=== PATIENT | male | born 1970 | race Caucasian/White ===

== ENCOUNTER → 2020-11-12 | Outpatient (CLI) | payer BC ==
--- NOTE | 2020-11-12 15:02 | XR ---
EXAMINATION TYPE: XR ankle limited RT DATE OF EXAM: 11/12/2020 COMPARISON: NONE HISTORY: 50-year-old male R52, pain TECHNIQUE: 2 views FINDINGS: Ankle mortise is congruent. No acute fracture, subluxation, or dislocation. Talar dome appears intact . There is lateral plate and screw fixation across the calcaneus. Some mild patchy osteopenia is pres ent along the hindfoot. Small delineation of the Achilles tendon. IMPRESSION: Prior lateral plate and screw fixation of the calcaneus. No acute osseous abnormality seen on these 2 views.
== END | disposition home or self-care (01) ==
LOC: RADXRMAIN 13:20
PROVIDERS: ATTEND Internal Medicine
DX: G89.29 Other chronic pain (principal)

== ENCOUNTER 2021-06-19 13:19 | Observation (INO) | payer BC ==
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
[2021-06-19 14:28] LABS: Basophils % (A) 0 %; Eosinophils % (A) 0 %; HCT 45.3 % (39.0-53.0); Hyperchromasia Slight; Lymphocytes # (A) 2.2 k/uL (1.0-4.8); Lymphocytes % (A) 24 %; MCH 31.7 pg (25.0-35.0); MCHC 35.4 g/dL (31.0-37.0); MCV 89.6 fL (80.0-100.0); Mean Platelet Volume 7.4; Monocytes # (A) 0.2 k/uL (0-1.0); Monocytes % (A) 3 %; Neutrophils # (A) 6.2 k/uL (1.3-7.7); Neutrophils % (A) 70 %; Platelet Count 381 k/uL (150-450); RBC 5.05 m/uL (4.30-5.90); RDW 13.5 % (11.5-15.5); WBC 8.8 k/uL (3.8-10.6)
[2021-06-19 14:38] LABS: ALT 42 U/L (4-49); AST 43 U/L (17-59); African American GFR (CKD) >90 (>60 ml/min/1.73 sqM); Albumin 4.5 g/dL (3.5-5.0); Alkaline Phosphatase 135 U/L (38-126); Anion Gap 11 mmol/L; Blood Urea Nitrogen 24 mg/dL (9-20); Calcium 9.8 mg/dL (8.4-10.2); Carbon Dioxide 20 mmol/L (22-30); Chloride 107 mmol/L (98-107); Creatine Kinase 43 U/L (55-170); Glucose 120 mg/dL (74-99); Magnesium 2.2 mg/dL (1.6-2.3); Non-African American GFR(CKD) >90 (>60 ml/min/1.73 sqM); Sodium 138 mmol/L (137-145); Total Bilirubin 0.8 mg/dL (0.2-1.3); Total Protein 7.9 g/dL (6.3-8.2)
[2021-06-19 14:40] LABS: INR 1.1 (<1.2); Partial Thromboplastin Time 23.7 sec (22.0-30.0); Prothrombin Time 11.8 sec (9.0-12.0)
[2021-06-19 14:41] LABS: Potassium 4.7 mmol/L (3.5-5.1)
[2021-06-19] MEDS ORDERED: ACETAMINOPHEN TAB 325 MG TAB PO PRN (15:44)
[2021-06-19] MEDS ORDERED: NALOXONE 0.4 MG/ML 1 ML VIAL IV PRN (15:44)
[2021-06-19] MEDS ORDERED: NICOTINE 21MG/24HR PATCH TRANSDERM STA (15:46)
[2021-06-19] MEDS ORDERED: ALBUTEROL HFA INHALER INHALATION PRN (15:47)
[2021-06-19] MEDS ORDERED: CYCLOBENZAPRINE 5 MG TAB PO PRN (15:47)
[2021-06-19] MEDS ORDERED: HYDROmorphone 0.5 MG/0.5 ML SYRINGE IVP PRN (18:33)
--- NOTE | 2021-06-19 19:37 | HP ---
HISTORY AND PHYSICAL CHIEF COMPLAINT: Right-sided chest discomfort and pneumothorax. HISTORY OF PRESENT ILLNESS: This 50-year-old gentleman with a past medical history of hypertension, history of migraines and history of tonsillectomy, being followed by Dr. Cervantes in the outpatient setting, apparently had sexual intercourse 2 days ago, and subsequently the patient lay down. The patient had right-sided chest pain, some shortness of breath, some discomfort. The patient was evaluated and had 20% to 30% pneumothorax. Because of lack of improvement and continued discomfort, the patient was sent to [facility] and was admitted for further evaluation and treatment. There is no history of any fever, rigors or chills. No history of headache, loss of consciousness, seizures. PAST MEDICAL: Hypertension, history of musculoskeletal disorder, history of migraines. MEDICATIONS: Prior to admission include Medrol Dosepak, [place], Flexeril, Zithromax, Ventolin p.r.n. ALLERGIES: PENICILLIN. FAMILY HISTORY: No history of heart disease or strokes in the family. SOCIAL HISTORY: History of smoking. History of THC. REVIEW OF SYSTEMS: ENT: No diminished hearing. No diminished vision. CARDIOVASCULAR SYSTEM: No angina, palpitations. RESPIRATORY SYSTEM: As mentioned earlier. GI: No nausea, vomiting, diarrhea. : No dysuria. NERVOUS SYSTEM: No numbness, weakness. ALLERGY/IMMUNOLOGY: No asthma or hay fever. MUSCULOSKELETAL: As mentioned earlier. HEMATOLOGY/ONCOLOGY: No history of anemia. ENDOCRINE: No history of diabetes, hypothyroidism. CONSTITUTIONAL: As mentioned earlier. DERMATOLOGY: Negative. RHEUMATOLOGY: Negative. PSYCHIATRY: As mentioned earlier. PHYSICAL EXAMINATION: Patient is alert, oriented x3. Pulse is 104, blood pressure 173/104, respiration 20, temperature 98.4, pulse ox 94% on room air. HEENT: Conjunctivae normal. Oral mucosa moist. NECK: No jugular venous distention. No carotid bruit. No lymph node enlargement. Trachea has mildly shifted to the left. CARDIOVASCULAR: S1, S2 muffled. No S3. No S4. RESPIRATION: Breath sounds diminished in the left side. No rhonchi. No crackles. ABDOMEN: Soft, nontender. No mass palpable. LEGS: No edema. No swelling. NERVOUS SYSTEM: Higher functions as mentioned earlier. Moves all 4 limbs. No focal motor or sensory deficit. LYMPHATICS: No lymph node palpable in neck, axillae or groin. SKIN: No ulcer, rash, bleeding. JOINTS: No active deforming arthropathy. LABS: CBC within normal limits. Sodium 138, potassium 4.7. Other labs are noted. Glucose 120. ASSESSMENT: 1. Spontaneous right pneumothorax with failure of outpatient treatment. 2. Decreased carbon dioxide. 3. Elevated alkaline phosphatase. 4. Hypertension. 5. History of migraine. 6. History of tonsillectomy. 7. History of ORIF for the bilateral feet. 8. History of panic attack. 9. History nicotine dependence. 10.History of THC. 11.FULL CODE. RECOMMENDATIONS AND DISCUSSION: In this 50-year-old gentleman who presented with multiple complex medical issues, we will monitor the patient closely, continue the current medications, continue symptomatic treatment. Repeat x-rays. Resume the home medications. Consult Dr. Ortiz for possible valve. Otherwise, prognosis guarded. Discussed with the patient, under understands. Further recommendations to follow. A copy of this dictation is being forwarded to Dr. Cervantes, who is the primary physician. PRADEEP / ADELAIDAN: [id number] / GLENDY
[2021-06-19] MEDS: HYDROcodone/APAP 10-325MG 1 EACH TAB PO PRN (22:42)
[2021-06-19] MEDS: HEPARIN SODIUM,PORCINE/PF 5,000 UNIT/0.5 ML SYRINGE SQ SCH (22:42)
--- NOTE | 2021-06-19 22:51 | CT ---
EXAMINATION TYPE: CT chest wo con DATE OF EXAM: 06/19/2021 COMPARISON: None HISTORY: right pnemo CT DLP: 263.4 mGycm Automated exposure control for dose reduction was used. Exam from the thoracic inlet to the diaphragm with no contrast. There is bullous pulmonary emphysema. There is also a right-sided pneumothorax and best seen along th e lower lateral right chest wall measuring up to 2.4 cm in thickness. This is approximate 25% pneumot horax. Heart size is normal. There is some reticular density at the right lung apex consistent with s carring. There are no hilar masses. There is no mediastinal adenopathy. There is no pleural effusion. . Bony thorax is intact. Thoracic spine is intact. Sternum is intact. IMPRESSION: There is approximate 25% right-sided pneumothorax probably not changed compared to chest x-ray 9 hour s ago. Severe bullous pulmonary emphysema. Right upper lobe scarring. No suspicious pulmonary mass.
--- NOTE | 2021-06-20 08:56 | XR ---
EXAMINATION TYPE: XR chest 2V DATE OF EXAM: 06/20/2021 COMPARISON: 06/19/2021 HISTORY: 50 years Male. STUDY INDICATION GIVEN: Pneumothorax . TECHNIQUE: Frontal lateral chest radiographs IMPRESSION: Stable small right sided moderate pneumothorax. No pneumothorax seen on the left. Hyperinflated lungs suggest centrilobular emphysema/COPD. Mild increase in interstitial opacities bilaterally suggests element of interstitial lung disease. No pleural effusion. Normal cardiomediastinal silhouette. Osseous structures appear similar to prior study.
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
[2021-06-20] MEDS: HEPARIN SODIUM,PORCINE/PF 5,000 UNIT/0.5 ML SYRINGE SQ SCH ×2 (10:20→21:29)
[2021-06-20] MEDS ORDERED: MULTIVITAMINS, THERA 1 EACH TAB PO SCH (12:00)
[2021-06-20 12:01] LABS: Basophils # (A) 0.1 k/uL (0-0.2); Basophils % (A) 1 %; Eosinophils # (A) 0.1 k/uL (0-0.7); Eosinophils % (A) 1 %; HCT 44.7 % (39.0-53.0); HGB 15.7 gm/dL (13.0-17.5); Hyperchromasia Slight; Lymphocytes # (A) 3.5 k/uL (1.0-4.8); Lymphocytes % (A) 41 %; MCH 31.9 pg (25.0-35.0); MCHC 35.2 g/dL (31.0-37.0); MCV 90.7 fL (80.0-100.0); Mean Platelet Volume 6.9; Monocytes # (A) 0.5 k/uL (0-1.0); Monocytes % (A) 6 %; Neutrophils % (A) 47 %; Platelet Count 358 k/uL (150-450); RBC 4.93 m/uL (4.30-5.90); RDW 13.5 % (11.5-15.5); WBC 8.6 k/uL (3.8-10.6)
[2021-06-20 12:23] LABS: African American GFR (CKD) >90 (>60 ml/min/1.73 sqM); Anion Gap 10 mmol/L; Blood Urea Nitrogen 24 mg/dL (9-20); Calcium 9.7 mg/dL (8.4-10.2); Carbon Dioxide 25 mmol/L (22-30); Chloride 103 mmol/L (98-107); Glucose 122 mg/dL (74-99); Non-African American GFR(CKD) 83 (>60 ml/min/1.73 sqM); Potassium 4.5 mmol/L (3.5-5.1); Sodium 138 mmol/L (137-145)
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
[2021-06-20] MEDS ORDERED: NICOTINE 21MG/24HR PATCH TRANSDERM STA (17:08)
--- NOTE | 2021-06-20 19:07 | PN ---
PROGRESS NOTE DATE OF SERVICE: 06/20/2021 This 50-year-old gentleman who was admitted with right-sided pneumothorax had bullae, bullous emphysematous disease. Dr. Ortiz is recommending conservative line of treatment at this time. The pneumothorax seems to be improving at this time. The bullae are mostly situated in the upper lobe. No chest pain. No palpitations. No fever. PHYSICAL EXAMINATION: Alert and oriented x3. Pulse 71, blood pressure 129/84, respiration 18, temperature 97.9, pulse ox 97% on room air. HEENT: Conjunctivae normal. NECK: No jugular venous distention. CARDIOVASCULAR: S1, S2 muffled. RESPIRATION: Breath sounds diminished at the bases. A few scattered rhonchi. ABDOMEN: Soft. NERVOUS SYSTEM: No focal deficit. LABS: Glucose 122. ASSESSMENT: 1. Acute spontaneous right pneumothorax with failure of outpatient treatment, possibly from rupture of bullae. 2. Possible chronic obstructive pulmonary disease and emphysema with multiple bullous lesions in the lungs bilaterally. 3. Decreased carbon dioxide. 4. Elevated alkaline phosphatase. 5. Hypertension. 6. History of migraines. 7. History of tonsillectomy. 8. History of ORIF of bilateral feet. 9. History of nicotine dependence. 10.History of panic attacks. 11.History of THC. 12.FULL CODE. RECOMMENDATIONS AND DISCUSSION: I recommend to continue current medications, continue with symptomatic treatment. Continue with bronchodilators. Continue with the rest of the medications. Repeat x- rays. Follow with Dr. Ortiz. Prognosis guarded. Further recommendations to follow. MMODL / IJN: [id number] /
[2021-06-20] MEDS: ALBUTEROL HFA INHALER INHALATION SCH (21:25)
[2021-06-20] MEDS: HYDROcodone/APAP 10-325MG 1 EACH TAB PO PRN (22:24)
[2021-06-21 04:07] VITALS: RESP 17
[2021-06-21 08:02] VITALS: BP 151/94; PULSE 88; TEMP 98
--- NOTE | 2021-06-21 08:44 | XR ---
EXAMINATION TYPE: XR chest 2V DATE OF EXAM: 06/21/2021 COMPARISON: 06/20/2021 HISTORY: 50-year-old male pneumothorax TECHNIQUE: PA and lateral views FINDINGS: Heart normal size. Aortopulmonary vasculature within normal limits. Hyperinflation. Right-sided pneum othorax redemonstrated. The peripheral right upper lobe component measures 1.7 cm versus 1.9 cm, prev iously. The peripheral right basilar component measures 1.8 cm versus 2.3 cm, previously. No consolid ation or pleural effusion. IMPRESSION: COPD with continued small right-sided pneumothorax. Both the peripheral right upper lobe and peripher al right basilar components show slight decreasing size with measurements as above.
[2021-06-21] MEDS: ALBUTEROL HFA INHALER INHALATION SCH ×2 (09:01→12:29)
[2021-06-21] MEDS: HEPARIN SODIUM,PORCINE/PF 5,000 UNIT/0.5 ML SYRINGE SQ SCH (09:30)
--- NOTE | 2021-06-21 11:16 | P.PN ---
Subjective Progress Note Date: 06/21/21 Principal diagnosis: Spontaneous right pneumothorax. Past medical history significant for migraine headaches, daily marijuana use, chronic ongoing tobacco dependence and family hi story of early onset coronary artery disease with his father having a myocardial infarction in his early 50s. The patient is seen in follow-up today 06/21/2021 and his bedside on the fourth floor medical surgical unit. Currently the patient is up ambulating in his room, is awake, alert and oriented 3 and is in no acute apparent distress. Denies any complaints of shortness of breath or pain at this time. Oxygen saturations are 97% on room air and he is achieving 1750 mL on his incentive spirometry with encouragement. A follow-up x-ray was completed this morning which demonstrates COPD with continued small right-sided pneumothorax with the radiology report showing a decreasing in size of the right sided pneumothorax. The patient reports he is anxious to be discharged home. Objective - Vital Signs Vital signs: Vital Signs Temp 98 F 06/21/21 08:00 Pulse 88 06/21/21 08:00 Resp 17 06/21/21 08:00 BP 151/94 06/21/21 08:00 Pulse Ox 97 06/21/21 08:00 Intake & Output 06/20/21 06/21/21 06/21/21 18:59 06:59 18:59 Other: # Voids 3 3 - Exam CONSTITUTIONAL: Up ambulating in his room on the medical surgical unit, appears comfortable, cooperative, no apparent acute distress. HEENT: Neck is supple, no JVD, no lymphadenopathy. RESPIRATORY: Lungs sounds essentially clear throughout, diminished to his right lower lobe. Respirations are symmetrical and nonlabored. Currently on room air with oxygen saturations 97%. Able to achieve 1750 mL on their incentive spirometry. Strong cough. CARDIOVASCULAR: Regular rhythm and rate. S1 and S2 present, negative for S3, gallop or murmur. No edema present. Peripheral pulses palpable. GASTROINTESTINAL: Abdomen soft, nontender, nondistended. Active bowel sounds present 4 quadrants. Tolerating diet. No guarding or rigidity. GENITOURINARY: Continues to void. INTEGUMENTARY: Skin is warm and dry with no evidence of clubbing or cyanosis. NEUROLOGIC: Cranial nerves II through XII intact. No focal deficits. MUSKULOSKELETAL: Able to move all extremities, strength equal bilaterally. PSYCHIATRIC: Alert and oriented to person place and time, appropriate affect, intact judgment and insight. - Allied health notes Allied health notes reviewed: nursing - Labs CBC & Chem 7: 06/20/21 11:34 06/20/21 11:34 Labs: Abnormal Lab Results - Last 24 Hours (Table) 06/20/21 Range/Units 11:34 BUN 24 H (9-20) mg/dL Glucose 122 H (74-99) mg/dL - Imaging and Cardiology Chest x-ray: report reviewed, image reviewed Assessment and Plan Assessment: 1. Acute spontaneous right sided pneumothorax 2. History of migraine headaches 3. Chronic ongoing tobacco dependence 4. Daily marijuana use 5. History of early onset coronary artery disease with his father having a my ocardial infarction in his early 50s Plan: 1. The patient remains asymptomatic, recommendations for discharge home per the cardiothoracic surgery standpoint and follow-up with on an outpatient basis. 2. Encourage use of his incentive spirometry 10 times every hour while awake. 3. The importance of risk modification including smoking cessation discussed with the patient. 4. More recommendations to follow based on patient's clinical course. Time with Patient: Greater than 30
--- NOTE | 2021-06-21 12:49 | P.PN ---
Subjective Progress Note Date: 06/21/21 Principal diagnosis: Right-sided chest pain, pneumothorax This is a 50-year-old white male primarily a patient of Dr. Cervantes, known history of COPD, [id number] smoking history, patient is also known to have history of migraine cephalgia, never seen by motor driver in the past. Patient developed sudden onset of right-sided chest pain on 06/17/2021 after having sexual intercourse. His pain was severe, and it was associated with some shortness of breath. Did not think much of it, patient took on his own and Medrol Dosepak, and that seemed to relieve the pain. Saw his primary care physician on 06/19 for a previously scheduled appointment, and because of his pain and he recommended that he goes to the ER. Patient was noted to have a small right-sided pneumothorax, seemed to be mostly loculated at the right base. CT of the chest showed significant emphysema with significant emphysematous blebs in both of his lungs. Patient had no symptoms during my evaluation. I reviewed the CT of the chest I also reviewed the x-ray, and felt at this point it is not really neces grant to place a chest tube, however if the pneumothorax gets any worse, may have to consider chest tube placement. I have also recommended evaluation by thoracic surgery, and my recommendations point is to observe, and follow-up on outpatient basis. Thoracic surgery consult was recommended. The patient is seen today 06/21/2021 in follow-up. He is currently sitting up in bed. Awake and alert in no acute distress. Denies any worsening shortness of breath, cough or congestion. Maintaining O2 saturations in the 90s on room air. She's afebrile. Hemodynamically stable. Follow-up chest x-ray continues to show evidence of COPD with a small right-sided pneumothorax. Both the peripheral right upper lobe and peripheral right basilar components show slight decrease in size. Objective - Vital Signs Vital signs: Vital Signs Temp 98 F 06/21/21 08:00 Pulse 88 06/21/21 08:00 Resp 17 06/21/21 08:00 BP 151/94 06/21/21 08:00 Pulse Ox 97 06/21/21 08:00 Intake & Output 06/20/21 06/21/21 06/21/21 18:59 06:59 18:59 Other: # Voids 3 3 - Exam GENERAL EXAM: Alert, wasn't 50-year-old gentleman, appears older than stated age, on room air, comfortable in no apparent distress. HEAD: Normocephalic. EYES: Normal reaction of pupils, equal size. NOSE: Clear with pink turbinates. THROAT: No erythema or exudates. NECK: No masses, no JVD. CHEST: No chest wall deformity. LUNGS: Equal air entry with no crackles, wheeze, rhonchi or dullness. Diminished CVS: S1 and S2 normal with no audible murmur, regular rhythm. ABDOMEN: No hepatosplenomegaly, normal bowel sounds, no guarding or rigidity. SPINE: No scoliosis or deformity SKIN: No rashes CENTRAL NERVOUS SYSTEM: No focal deficits, tone is normal in all 4 extremities. EXTREMITIES: There is no peripheral edema. No clubbing, no cyanosis. Peripheral pulses are intact. - Labs CBC & Chem 7: 06/20/21 11:34 06/20/21 11:34 Assessment and Plan Assessment: 1 Acute right sided spontaneous pneumothorax 2 Suspect severe underlying emphysema 3 Tobacco dependence syndrome 4 History of migraine cephalgia 5 Family history of coronary artery disease. Plan: The patient was seen and evaluated by Dr. Ortiz Chest x-ray reviewed Cleared for discharge from the pulmonary standpoint Educated regarding the importance of complete smoking cessation Follow-up in our office in 1 week I, the cosigning physician, performed a history & physical examination of the patient. Lungs sounds are clear, diminished. Maintaining O2 saturations in the 90s on room air. I discussed the assessment and plan of care with my nurse practitioner, Chata Mosquera. I attest to the above note as dictated by her.
--- NOTE | 2021-06-22 05:42 | DS ---
DISCHARGE SUMMARY DATE OF SERVICE: 06/21/2021 FINAL DIAGNOSES: 1. Acute spontaneous right pneumothorax with failure of outpatient treatment, possibly from rupture of the bullae. 2. Possible chronic obstructive pulmonary disease with bullous emphysema with multiple bullous lesions bilaterally in the lungs. 3. Decreased CO2. 4. Elevated alkaline phosphatase. 5. Hypertension. 6. History of migraines. 7. History of tonsillectomy. 8. History of ORIF of the bilateral feet. 9. History of nicotine dependence. 10.History of panic attacks. 11.History of THC. 12.FULL CODE. DISCHARGE DISPOSITION: Patient being discharged in stable condition with guarded prognosis. HISTORY OF PRESENT ILLNESS: This 50-year-old gentleman with a past medical history of multiple medical problems, being followed by Dr. Cervantes in the outpatient setting admitted with right spontaneous pneumothorax. CT scan showed multiple bullae. The patient was treated conservatively. Initially the pneumothorax was 20-30 percent, but subsequently improved and only confined to the lower part. Cardiothoracic surgery and Dr. Ortiz saw the patient recommended outpatient followup. On exam, vitals stable. Cardiovascular S1, S2. Respiratory with a few rhonchi. Abdomen soft. Nervous system: No focal deficits. DISCHARGE ADVICE AND MEDICATIONS: 1. Diet is cardiac diet. 2. Activity limited until follow up. 3. Follow up with Dr. Ortiz in 1 week. 4. Follow up with Dr. Cervantes as recommended. 5. Flexeril 5 mg p.o. daily. 6. Medrol Dosepak taper. 7. Hydrocodone 10 mg p.r.n. 8. Ventolin HFA 2 puffs q.i.d. 9. Zithromax 500 mg as before. 10.Follow up with Dr. Almonte in 1 week. MMODL / IJN: [id number] /
== END 2021-06-21 12:44 | disposition home or self-care (01) ==
LOC: EC 13:19 → 4SSUR 15:46
PROVIDERS: ADMIT Internal Medicine; ATTEND Internal Medicine
DX: J93.83 Other pneumothorax (principal); R91.8 Other nonspecific abnormal finding of lung field; R74.8 Abnormal levels of other serum enzymes; R79.81 Abnormal blood-gas level; I10 Essential (primary) hypertension; G43.909 Migraine, unspecified, not intractable, without status migrainosus; F17.210 Nicotine dependence, cigarettes, uncomplicated; F41.0 Panic disorder [episodic paroxysmal anxiety]; Z53.29 Procedure and treatment not carried out because of patient's decision for other reasons; M79.9 Soft tissue disorder, unspecified; I25.10 Atherosclerotic heart disease of native coronary artery without angina pectoris; Z20.822 Contact with and (suspected) exposure to COVID-19; Z88.0 Allergy status to penicillin; Z71.6 Tobacco abuse counseling; Z79.899 Other long term (current) drug therapy; Z87.828 Personal history of other (healed) physical injury and trauma; Z98.890 Other specified postprocedural states; Z82.49 Family history of ischemic heart disease and other diseases of the circulatory system; Z83.79 Family history of other diseases of the digestive system
CPT/HCPCS: 96372; 99285; 36415; 94640 ×3; 93005; 80053; 80048; 84443; 82550; 83735; 84484; 85025 ×2; 85610; 85730; 87635; 71046 ×2; 71250; G0378 ×3; S4990 ×2; J1644

== ENCOUNTER → 2021-06-19 | Outpatient (CLI) | payer BC ==
--- NOTE | 2021-06-19 13:02 | XR ---
EXAMINATION TYPE: XR chest 2V DATE OF EXAM: 06/19/2021 COMPARISON: NONE TECHNIQUE: PA and lateral views submitted. HISTORY: Weight loss and chest pain FINDINGS: There is a right-sided pneumothorax measuring 20-30% on the right. Left lung clear. Hyperinflation miller ggests COPD. Hypertrophic and degenerative change of the spine. No interstitial edema. Tiny granuloma left upper lobe. Could not exclude a 5 mm nodule right midlung. IMPRESSION: 1. Approximately 20-30% right-sided pneumothorax. Report called to the referring clinician Be link 06/19/2021 at 12:55 PM. 2. Possible 5 mm right-sided pulmonary nodule consider CT of the chest.
[2021-06-19 13:54] LABS: HCT 46.8 % (39.0-53.0); MCH 31.5 pg (25.0-35.0); MCHC 34.1 g/dL (31.0-37.0); MCV 92.3 fL (80.0-100.0); Mean Platelet Volume 7.1; Platelet Count 341 k/uL (150-450); RBC 5.08 m/uL (4.30-5.90); RDW 13.2 % (11.5-15.5); WBC 10.4 k/uL (3.8-10.6)
[2021-06-19 14:05] LABS: ALT 43 U/L (4-49); AST 42 U/L (17-59); African American GFR (CKD) >90 (>60 ml/min/1.73 sqM); Albumin 4.6 g/dL (3.5-5.0); Alkaline Phosphatase 135 U/L (38-126); Anion Gap 10 mmol/L; Blood Urea Nitrogen 23 mg/dL (9-20); Carbon Dioxide 23 mmol/L (22-30); Chloride 106 mmol/L (98-107); Glucose 119 mg/dL (74-99); Non-African American GFR(CKD) 85 (>60 ml/min/1.73 sqM); Potassium 5.2 mmol/L (3.5-5.1); Sodium 139 mmol/L (137-145); Total Bilirubin 0.6 mg/dL (0.2-1.3)
[2021-06-19 14:21] LABS: T4, Free (Free Thyroxine) 1.11 ng/dL (0.78-2.19)
== END | disposition home or self-care (01) ==
LOC: RADXRMAIN 12:33
PROVIDERS: ATTEND Internal Medicine
DX: J93.9 Pneumothorax, unspecified (principal)
CPT/HCPCS: 71046; 80053; 84403; 84439; 84443; 85027

== ENCOUNTER 2021-12-12 23:35 | Observation (INO) | payer BC ==
[2021-12-12] MEDS ORDERED: SODIUM CHLORIDE 0.9% 1,000 ML IV STA (23:37)
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
[2021-12-12] MEDS ORDERED: PROCHLORPERAZINE INJ 10 MG/2 ML VIAL IVP STA (23:55)
[2021-12-12] MEDS ORDERED: MORPHINE SULFATE 4 MG/ML SYRINGE IVP STA (23:55)
--- NOTE | 2021-12-13 00:50 | CT ---
EXAMINATION TYPE: CT brain cspine wo con DATE OF EXAM: 12/13/2021 COMPARISON: None HISTORY: ams CT DLP: 1324.7 mGycm Automated exposure control for dose reduction was used. Images obtained of the brain and cervical spine with no contrast. Ventricles and sulci appear normal. There is no mass effect or midline shift. There is no sign of int racranial hemorrhage. Calvarium is intact. Skull base is intact. There is normal aeration of the mast oid sinuses. The cervical vertebra have normal alignment. There is mild degenerative disc space narrowing at C4-5 and C5-6. No fracture. Facet joints are intact. IMPRESSION: Negative unenhanced head CT scan. Negative CT scan cervical spine. Minor degenerative spurring.
[2021-12-13 01:35] LABS: Acetaminophen <10.0 ug/mL; African American GFR (CKD) 89 (>60 ml/min/1.73 sqM); Albumin 4.6 g/dL (3.5-5.0); Alcohol <10 mg/dL; Alkaline Phosphatase 57 U/L (38-126); Anion Gap 23 mmol/L; Blood Urea Nitrogen 18 mg/dL (9-20); Carbon Dioxide 11 mmol/L (22-30); Chloride 102 mmol/L (98-107); Glucose 175 mg/dL (74-99); Magnesium 2.6 mg/dL (1.6-2.3); Non-African American GFR(CKD) 77 (>60 ml/min/1.73 sqM); Phosphorus 4.6 mg/dL (2.5-4.5); Salicylate <1.0 mg/dL; Sodium 136 mmol/L (137-145); Total Bilirubin 0.9 mg/dL (0.2-1.3); Total Protein 7.8 g/dL (6.3-8.2)
[2021-12-13 01:40] LABS: AST 41 U/L (17-59)
[2021-12-13 01:41] LABS: ALT 27 U/L (4-49)
[2021-12-13 01:44] LABS: INR 1.5 (<1.2); Partial Thromboplastin Time 20.2 sec (22.0-30.0); Prothrombin Time 15.8 sec (9.0-12.0)
[2021-12-13 03:01] LABS: Potassium 4.4 mmol/L (3.5-5.1)
[2021-12-13 03:33] LABS: Basophils # (A) 0.1 k/uL (0-0.2); Basophils % (A) 0 %; Eosinophils # (A) 0.2 k/uL (0-0.7); Eosinophils % (A) 1 %; HCT 38.9 % (39.0-53.0); HGB 13.9 gm/dL (13.0-17.5); Lymphocytes # (A) 1.2 k/uL (1.0-4.8); Lymphocytes % (A) 7 %; MCH 32.6 pg (25.0-35.0); MCHC 35.7 g/dL (31.0-37.0); MCV 91.4 fL (80.0-100.0); Mean Platelet Volume 7.2; Monocytes # (A) 0.6 k/uL (0-1.0); Monocytes % (A) 3 %; Neutrophils # (A) 15.7 k/uL (1.3-7.7); Neutrophils % (A) 88 %; Platelet Count 234 k/uL (150-450); RBC 4.26 m/uL (4.30-5.90); RDW 12.6 % (11.5-15.5); WBC 17.8 k/uL (3.8-10.6)
[2021-12-13 03:38] LABS: Appearance,Urine Clear (Clear); Bilirubin,Urine Negative (Negative); Blood,Urine Small (Negative); Color,Urine Light Yellow; Glucose,Urine (UA) Negative (Negative); Hyaline Casts,Urine 3 /lpf (0-2); Ketones,Urine 2+ (Negative); Leukocyte Esterase,Urine Negative (Negative); Mucus,Urine Rare /hpf; Nitrite,Urine Negative (Negative); Protein,Urine 1+ (Negative); RBC,Urine 1 /hpf (0-5); Specific Gravity,Urine 1.015 (1.001-1.035); Squamous Epithelial Cell,Urine 1 /hpf (0-4); Urobilinogen,Urine <2.0 mg/dL (<2.0); WBC,Urine 1 /hpf (0-5)
[2021-12-13] MEDS ORDERED: levETIRAcetam IV 1,500 MG in SALINE 1 100ML.BAG IVPB STA (03:50)
[2021-12-13] MEDS ORDERED: ONDANSETRON 4 MG/2 ML VIAL IVP PRN (03:50)
[2021-12-13] MEDS ORDERED: LORazepam 2 MG/ML INJ IV PRN (03:50)
[2021-12-13] MEDS ORDERED: NALOXONE 0.4 MG/ML 1 ML VIAL IV PRN (03:50)
[2021-12-13] MEDS: SODIUM CHLORIDE 0.9% 1,000 ML IV SCH ×3 (04:34→22:55)
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
[2021-12-13] MEDS: HEPARIN SODIUM,PORCINE/PF 5,000 UNIT/0.5 ML SYRINGE SQ SCH ×2 (09:07→13:43)
--- NOTE | 2021-12-13 12:27 | P.PN ---
Progress Note - Text Progress Note Date: 12/13/21 Patient seen and examined, no further seizure episodes. Awaiting EEG, MRI and neurology evaluation.
[2021-12-13] MEDS: MORPHINE SULFATE 4 MG/ML SYRINGE IV PRN ×2 (13:59→19:21)
[2021-12-13] MEDS: levETIRAcetam IV 1,000 MG in SALINE 1 100ML.BAG IVPB SCH (13:59)
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
[2021-12-14] MEDS: HEPARIN SODIUM,PORCINE/PF 5,000 UNIT/0.5 ML SYRINGE SQ SCH ×3 (00:37→15:42)
[2021-12-14] MEDS: MORPHINE SULFATE 4 MG/ML SYRINGE IV PRN ×2 (00:37→05:44)
[2021-12-14] MEDS: levETIRAcetam IV 1,000 MG in SALINE 1 100ML.BAG IVPB SCH (04:15)
[2021-12-14 04:22] VITALS: RESP 18
--- NOTE | 2021-12-14 10:55 | P.PN ---
Subjective Progress Note Date: 12/14/21 I am seeing the patient for the first time during this hospital visit for neurological management. Please refer to Dr. Chu's note for further details. Patient feels she is doing better and no further seizure. He does have history of Migraine and was following-up with Dr. Aragon in past and was prescribed Topamax. At one point he was taking 100mg daily and then tapered down and currently taking 25mg 1 tab PRN. He is no longer following-up with Dr. Aragon. He denies history of seizures in the past or alcohol use. Objective - Vital Signs Vital signs: Vital Signs Temp 98.5 F 12/14/21 04:09 Pulse 65 12/14/21 04:09 Resp 18 12/14/21 04:09 BP 124/70 12/14/21 04:09 Pulse Ox 98 12/14/21 04:09 Intake & Output 12/13/21 12/14/21 12/14/21 18:59 06:59 18:59 Intake Total 240 1660 Balance 240 1660 Intake: Intake, IV Titration 1660 Amount Sodium Chloride 0.9% 1, 1560 000 ml @ 130 mls/hr IV . Q7H42M [facility] Rx#:[id number] levETIRAcetam IV 1,000 mg 100 In Saline 1 100ml.bag @ 400 mls/hr IVPB Q12H [facility] Rx#:[id number] Oral 240 Other: Voiding Method Toilet # Voids 4 2 - Exam GENERAL: The patient is lying in bed and is not in acute distress. NEUROLOGICAL: Higher mental function: The patient is awake, alert, oriented to self, place and time. Patient is following commands. No aphasia and no neglect. Cranial nerves: The pupils are round, equal and reactive to light and a ccommodation. Visual juárez are full to confrontation throughout. Extraocular movement is intact no nystagmus is noted. Facial sensation is normal to touch throughout. The facial strength is normal throughout. H Tongue is midline and moved [id number] without any difficulty. No dysarthria is noted. Shoulder shrug is normal bilaterally. Motor: The strength is 5 over 5 throughout. Normal tone and bulk. Sensation: Sensation is normal to touch throughout. WORK-UP: Has afebrile Plasma lactic acid is 13.1 Coronavirus PCR is not detected. CT scan of the brain performed in the emergency department revealed no signs of acute hemorrhage or infarct. CT cervical spine is negative and is reported as minor degenerative spurring. - Labs CBC & Chem 7: 12/13/21 03:24 12/13/21 00:09 Assessment and Plan Assessment: 1. New onset seizure-etiology currently unknown 2. Lactic acidosis-secondary to seizure 3. Leukocytosis-reactive, secondary to seizure 4. History of migraine headaches Plan: Pending MRI Brain w/ and w/o. Pending EEG. She is currently on Keppra 1000mg every 12 hours that was started by ED team. Because of the patient history of migraines as well as new onset seizures I feel the patient will benefit from Topamax of 50 mg 1 tablet twice a day (he is on Topamax for migraine and denies any side-effect but currently taking 25mg 1 tab PRN for migraine). I will decrease Keppra to 500mg 1 tab bid and upon him following-up with his neurologist (Dr. Aragon) recommend stopping Keppra if no further seizures. Continue seizure precaution and pads. Q4 hour neuro checks. Per [facility] because of the seizures the patient cannot drive for 6 month until seizure-free. Patient to avoid heights, avoid using heavy machinery or swim unassisted. This was discussed to the patient. Will defer the rest of medical management to the primary team. Upon discharge, patient needs to follow-up with his neurologist (Dr. Aragon) as outpatient within 1-2 weeks. No additional work-up needed besides above. Wesly Rolon M.D. Neuro-Hospitalist. Time with Patient: Less than 30
[2021-12-14 10:58] LABS: Basophils # (A) 0.04 X 10*3/uL (0.00-0.10); Basophils % (A) 0.5 %; Eosinophils # (A) 0.07 X 10*3/uL (0.04-0.35); Eosinophils % (A) 0.8 %; HCT 40.2 % (39.6-50.0); HGB 13.5 g/dL (13.0-17.0); Immature Grans, Automated 0.2 %; Lymphocytes # (A) 3.04 X 10*3/uL (0.90-5.00); Lymphocytes % (A) 36.5 %; MCH 31.5 pg (27.0-32.0); MCHC 33.6 g/dL (32.0-37.0); MCV 93.9 fL (80.0-97.0); Mean Platelet Volume 9.7 fL (9.5-12.2); Monocytes # (A) 0.48 X 10*3/uL (0.20-1.00); Monocytes % (A) 5.8 %; NRBC Per 100 WBC 0 /100 WBCS (0.0-0.0); Neutrophils # (A) 4.68 X 10*3/uL (1.80-7.70); Neutrophils % (A) 56.2 %; Platelet Count 223 X 10*3/uL (140-440); RBC 4.28 X 10*6/uL (4.40-5.60); WBC 8.33 X 10*3/uL (4.50-10.00)
[2021-12-14] MEDS ORDERED: TOPIRAMATE 25 MG TAB PO SCH (11:00)
[2021-12-14 11:08] LABS: African American GFR (CKD) 112.6 (60.0-200.0); Albumin 3.9 g/dL (3.8-4.9); Albumin/Globulin Ratio 1.95 (1.60-3.17); Anion Gap 9.9 mmol/L (10.00-18.00); BUN/Creat Ratio 12.22 Ratio (12.00-20.00); Calcium 8.4 mg/dL (8.7-10.3); Carbon Dioxide 23.1 mmol/L (20.0-27.5); Magnesium 2.2 mg/dL (1.5-2.4); Non-African American GFR(CKD) 97.2 (60.0-200.0); Potassium 4.5 mmol/L (3.5-5.5); Total Bilirubin 0.5 mg/dL (0.30-1.20); Total Protein 5.9 g/dL (6.2-8.2)
[2021-12-14] MEDS: SODIUM CHLORIDE 0.9% 1,000 ML IV SCH ×2 (12:22→15:43)
[2021-12-14 15:44] VITALS: BP 161/78; PULSE 52; TEMP 98.2
--- NOTE | 2021-12-14 17:13 | MR ---
EXAMINATION TYPE: MR brain wo/w con DATE OF EXAM: 12/14/2021 COMPARISON: None HISTORY: New onset seizure. CONTRAST: Standard multiplanar, multisequence MRI departmental protocol images were obtained without contrast a nd with 7.5 mL intravenous Gadavist gadolinium contrast. Ventricles have normal size. There is no mass effect or midline shift. There is no evidence of intrac ranial hemorrhage. Diffusion images show no evidence of an acute infarct. On the T2 and FLAIR images there are multiple nodular foci of increased signal in the periventricular white matter and more noticeable around the occipital horn left lateral ventricle. Total number of l esions is approximately 20. Most of these measure less than 4 mm. The largest measures 10 mm at the o ccipital horn of the left lateral ventricle. Corpus callosum is intact. Brainstem is intact. Cerebellum appears normal. There is no evidence of or bital mass. Sella turcica appears normal. Contrast images show no pathologic enhancement. There is normal enhancement of the venous sinuses. IMPRESSION: Multiple periventricular white matter foci are nonspecific and could relate to demyelinating disease or microvascular ischemia. Lesions are concentrated mainly in the left posterior temporal lobe and le ft occipital lobe.
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
[2021-12-14] MEDS ORDERED: levETIRAcetam 500 MG TAB PO SCH (21:00)
== END 2021-12-14 18:11 | disposition home or self-care (01) ==
LOC: EC 23:35 → 5NMEDONC 12-13 03:50
PROVIDERS: ADMIT Internal Medicine; ATTEND Internal Medicine
DX: R56.9 Unspecified convulsions (principal); E87.2 Acidosis; D72.829 Elevated white blood cell count, unspecified; I45.10 Unspecified right bundle-branch block; G43.909 Migraine, unspecified, not intractable, without status migrainosus; F17.200 Nicotine dependence, unspecified, uncomplicated; G89.29 Other chronic pain; M54.9 Dorsalgia, unspecified; M54.2 Cervicalgia; Z20.822 Contact with and (suspected) exposure to COVID-19; Z79.899 Other long term (current) drug therapy; Z88.0 Allergy status to penicillin; Z87.828 Personal history of other (healed) physical injury and trauma; Z98.890 Other specified postprocedural states; Z82.49 Family history of ischemic heart disease and other diseases of the circulatory system; Z83.79 Family history of other diseases of the digestive system; W19.XXXA Unspecified fall, initial encounter; Y92.009 Unspecified place in unspecified non-institutional (private) residence as the place of occurrence of the external cause
CPT/HCPCS: 96376 ×2; 96361 ×3; 96365; 96375; 99285; 36415; 93005; 83880; 80053 ×2; 83605; 83735 ×2; 84100; 84484; 85025 ×2; 85610; 85730; 81001; 80143; 80320; 87635; 80179; 72125; 70450; 70553; G0378 ×2; J2270 ×2; J0780; J1953 ×3; A9585

== ENCOUNTER → 2021-12-22 | Outpatient (CLI) | payer BC ==
--- NOTE | 2021-12-22 20:15 | EEG ---
ELECTROENCEPHALOGRAM REPORT DATE OF SERVICE: 12/22/2021 PREAMBLE: This is a 51-year-old male who had a new-onset seizure. EEG FINDINGS: This is a 21-channel digital EEG recorded with video component, utilizing 10/20 international system with referential and bipolar montages. Background consists of well developed, well regulated, moderate voltage activity in 9 to 10 hertz alpha. Background is posterior-dominant and reactive to eye opening and closing. Photic driving response was not clearly seen. Some drowsiness was seen with appearance of bilaterally symmetric theta frequency rhythm. Deeper stages of sleep were not seen. Some sporadic bitemporal sharply contoured theta was seen during drowsiness, which did not appear clearly epileptiform. IMPRESSION: This is probably a normal awake and drowsy EEG. No clear-cut epileptiform activity was seen. Please see description above. Normal EEG does not rule out seizure disorder. If your suspicion for seizure is high, suggest prolonged, sleep-deprived EEG. MMODL / IJN: [id number] / MTDD
== END ==
LOC: NEUROMAIN 09:38
PROVIDERS: ATTEND Student in an Organized Health Care Education/Training Program
DX: R56.9 Unspecified convulsions (principal); F17.200 Nicotine dependence, unspecified, uncomplicated; Z88.0 Allergy status to penicillin
CPT/HCPCS: 95816

== ENCOUNTER → 2022-01-29 | Outpatient (CLI) | payer BC ==
--- NOTE | 2022-01-29 08:48 | MR ---
EXAMINATION TYPE: MR angio head wo/neck wo/w con DATE OF EXAM: 01/29/2022 COMPARISON: MRI brain with and without contrast December 14, 2021 HISTORY: Headaches TECHNIQUE: Time of flight images focusing on the Early Branch of [place] were performed without contrast.. 2-D and 3-D postprocessing imaging is performed on a independent workstation. MRI of the neck without and with contrast. Patient given 6 cc of gadolinium this for the study. FINDINGS: Codominant vertebral arteries patent to basilar junction. There are small caliber patent bi lateral posterior communicating arteries. There is no significant focal stenosis or aneurysmal change in the posterior circulation. Images of the anterior circulation show poorly visualized possible patent tiny caliber anterior commu nicating artery near image 101, suggestion of flow void on recent MRI axial image 16. There is no sig nificant focal stenosis or aneurysm identified. Normal 3 vessel origins from the aortic arch. No significant stenosis. Normal origin right brachiocep halic arteries right common carotid artery. There is no significant stenosis in the common or interna l carotid arteries bilaterally with particular attention to the carotid bulbs. No significant stenosi s in the external carotid arteries is present. Patent bilateral vertebral arteries without significan t stenosis also noted. IMPRESSION: Unremarkable study.
--- NOTE | 2022-01-29 11:06 | CA ---
Transthoracic Echo Report Name: Loy Gonsales Age: 51 Gender: M : 1970 Exam Date: 01/29/2022 08:44 Exam Location: [facility] Ht (in): 74 Wt (lb): 140 Ordering Physician: Lloyd Aragon DO Attending/Referring Phys: [employer] Mireya Cuevas RDCS Procedure CPT: Indications: I82.90 Cardiac Hx: Technical Quality: Good Contrast 1: Total Dose (mL): Contrast 2: Total Dose (mL): MEASUREMENTS (Male / Female) Normal Values 2D ECHO LV Diastolic Diameter PLAX 4.5 cm 4.2 - 5.9 / 3.9 - 5.3 cm LV Systolic Diameter PLAX 2.9 cm IVS Diastolic Thickness 1.2 cm 0.6 - 1.0 / 0.6 - 0.9 cm LVPW Diastolic Thickness 1.2 cm 0.6 - 1.0 / 0.6 - 0.9 cm LV Relative Wall Thickness 0.5 RV Internal Dim ED PLAX 2.6 cm LVOT Diameter 2.4 cm LA Systolic Diameter LX 3.0 cm 3.0 - 4.0 / 2.7 - 3.8 cm LA Volume 38.8 cm 18 - 58 / 22 - 52 cm M-MODE Aortic Root Diameter MM 3.3 cm MV E Point Septal Separation 1.0 cm AV Cusp Separation MM 1.8 cm DOPPLER AV Peak Velocity 259.5 cm/s AV Peak Gradient 26.9 mmHg AV Mean Velocity 154.2 cm/s AV Mean Gradient 12.0 mmHg AV Velocity Time Integral 51.2 cm AI Peak Velocity 546.1 cm/s AI Peak Gradient 119.3 mmHg AI Pressure Half Time 1160.0 ms LVOT Peak Velocity 112.7 cm/s LVOT Peak Gradient 5.1 mmHg AV Area Cont Eq pk 1.9 cm MV Area PHT 1.6 cm Mitral E Point Velocity 51.9 cm/s Mitral A Point Velocity 42.2 cm/s Mitral E to A Ratio 1.2 MV Deceleration Time 466.7 ms MV E' Velocity 4.8 cm/s Mitral E to MV E' Ratio 10.8 TR Peak Velocity 245.7 cm/s TR Peak Gradient 24.1 mmHg Right Ventricular Systolic Press 28.7 mmHg FINDINGS Left Ventricle Left ventricular ejection fraction is estimated at 55-60 %. Mildly increased left ventricular wall thickness. Normal Left ventricular size Right Ventricle Normal right ventricular size and function. Right ventricular systolic pressure within normal limits. Right Atrium Normal right atrial size. Left Atrium Normal left atrial size. Mitral Valve Mitral valve thickened. Mild mitral regurgitation. Aortic Valve Probable trileaflet aortic valve. Mild aortic stenosis with a peak gradient of 27 mmHg and a mean gradient of 12mmHg. Moderate aortic regurgitation. Moderate sclerosis Tricuspid Valve Mild tricuspid regurgitation. Pulmonic Valve Pulmonic valve not well visualized. Pericardium Normal pericardium. Aorta Aortic root and proximal ascending aorta not well visualized. CONCLUSIONS Normal LV size and systolic function with concentric LVH. Mitral annular calcification. Aortic valve is probably trileaflet there is calcification restriction with mild to moderate stenosis peak gradient of less than 30 mmHg. No pericardial effusion Previewed by: Dr. Gino Esposito MD (Electronically Signed) Final Date: 29 January 2022 11:06
== END | disposition home or self-care (01) ==
LOC: RADMRIMAIN 07:06
PROVIDERS: ATTEND Psychiatry & Neurology Neurology
DX: I34.8 Other nonrheumatic mitral valve disorders (principal); R51.9 Headache, unspecified
CPT/HCPCS: 93306; 70544; 70549; A9585

== ENCOUNTER → 2022-03-13 | Outpatient (CLI) | payer BC ==
[2022-03-13 10:24] LABS: INR 1.2 (<1.2); Partial Thromboplastin Time 24.7 sec (22.0-30.0); Prothrombin Time 12.4 sec (9.0-12.0)
== END | disposition home or self-care (01) ==
LOC: LABWHC1 09:06
PROVIDERS: ATTEND Psychiatry & Neurology Neurology
DX: Z12.5 Encounter for screening for malignant neoplasm of prostate (principal)
CPT/HCPCS: 36415; 83090; 84153; 85610; 85652; 85730; 86038

== ENCOUNTER 2024-03-08 15:58 | Inpatient (IN) | payer BC ==
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
[2024-03-08] MEDS: IPRATROPIUM-ALBUTEROL 3 ML NEB INHALATION STA ×2 (16:52→20:59)
--- NOTE | 2024-03-08 17:10 | XR ---
EXAMINATION TYPE: XR chest 1V portable DATE OF EXAM: 03/08/2024 Comparison: 06/21/2021 Clinical History: 53-year-old male sob Findings: Heart normal size. Aorta and pulmonary vasculature within normal limits. Hyperinflation. Diffuse reti cular opacities more confluent in the lower lungs. No sizable pleural effusion. Impression: COPD with superimposed interstitial lung disease and bibasilar airspace disease. Consider sequela of interstitial pulmonary edema versus aspiration, atypical infections, or interstitial pneumonitis.
[2024-03-08] MEDS: SODIUM CHLORIDE 0.9% 1,000 ML IV STA (17:16)
[2024-03-08 17:29] LABS: HCT 39.9 % (39.0-53.0); HGB 12.9 gm/dL (13.0-17.5); MCH 31.7 pg (25.0-35.0); MCHC 32.3 g/dL (31.0-37.0); MCV 98.3 fL (80.0-100.0); Mean Platelet Volume 8.4; Platelet Count 455 k/uL (150-450); RBC 4.06 m/uL (4.30-5.90); RDW 13.5 % (11.5-15.5); WBC 38.5 k/uL (3.8-10.6)
[2024-03-08 17:48] LABS: ALT 10 U/L (4-49); AST 28 U/L (17-59); African American GFR (CKD) 75 (>60 ml/min/1.73 sqM); Albumin 3.6 g/dL (3.5-5.0); Alkaline Phosphatase 235 U/L (38-126); Anion Gap 12 mmol/L; Blood Urea Nitrogen 38 mg/dL (9-20); Calcium 8.3 mg/dL (8.4-10.2); Carbon Dioxide 20 mmol/L (22-30); Chloride 102 mmol/L (98-107); Glucose 124 mg/dL (74-99); Magnesium 2.1 mg/dL (1.6-2.3); Non-African American GFR(CKD) 65 (>60 ml/min/1.73 sqM); Potassium 4.3 mmol/L (3.5-5.1); Sodium 134 mmol/L (137-145); Total Bilirubin 0.8 mg/dL (0.2-1.3); Total Protein 6.6 g/dL (6.3-8.2)
[2024-03-08 17:52] LABS: INR 1.2 (<1.2); Prothrombin Time 12.5 sec (10.0-12.5)
[2024-03-08 17:56] LABS: NT-Pro-B-Type Natriuretic Pept 2760 pg/mL
[2024-03-08 18:22] LABS: Lymphocytes # (M) 0.77 k/uL (1.0-4.8); Monocytes # (M) 0.77 k/uL (0-1.0); Neutrophils # (M) 36.96 k/uL (1.3-7.7); Neutrophils % (M) 96 %; Nucleated Red Blood Cells 0 /100 WBC (0-0); Total Cells Counted 100
[2024-03-08 18:23] LABS: RBC Morphology Normal
[2024-03-08] MEDS: AZITHROMYCIN 500 MG in SODIUM CHLORIDE 0.9% 250 ML IVPB STA (18:41)
[2024-03-08] MEDS ORDERED: ALBUTEROL NEBULIZED 2.5 MG/3 ML INHALATION PRN (19:18)
[2024-03-08] MEDS ORDERED: PNEUMONIA PROTOCOL UTILIZED 1 EACH MISC PO PRN (19:18)
[2024-03-08] MEDS: HYDROmorphone 0.5 MG/0.5 ML SYRINGE IVP STA (20:25)
[2024-03-08] MEDS: SODIUM CHLORIDE 0.9% 1,000 ML IV SCH (20:32)
[2024-03-08] MEDS: HYDROmorphone 1 MG/ML 1 ML SYRINGE IVP STA (20:32)
[2024-03-08] MEDS: ACETAMINOPHEN TAB 500 MG TAB PO PRN (21:25)
[2024-03-09] MEDS ORDERED: IPRATROPIUM-ALBUTEROL 3 ML NEB INHALATION PRN (00:33)
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
[2024-03-09] MEDS: HYDROmorphone 1 MG/ML 1 ML SYRINGE IVP PRN (04:38)
--- NOTE | 2024-03-09 07:35 | XR ---
EXAMINATION TYPE: XR chest 1V portable DATE OF EXAM: 03/09/2024 Comparison: 03/08/2024 Clinical History: 53-year-old male with difficulty in breathing, pneumonia Findings: Heart normal size. Hyperinflation. Worsening patchy interstitial and more confluent bibasilar opaciti es. Possible development of a trace left effusion. Impression: COPD with ongoing interstitial infiltrates but now with worsening bibasilar airspace disease. Conside r atypical infections, interstitial pneumonitis, developing pulmonary edema, and aspiration as some p ossibilities.
[2024-03-09] MEDS: FORMOTEROL FUMARATE 20 MCG/2 ML NEBU INHALATION SCH (08:18)
[2024-03-09] MEDS: IPRATROPIUM-ALBUTEROL 3 ML NEB INHALATION SCH (08:19)
[2024-03-09] MEDS: BUDESONIDE 1 MG/2 ML NEBU INHALATION SCH (08:19)
[2024-03-09] MEDS: ENOXAPARIN 40 MG/0.4 ML SYRINGE SQ SCH (08:25)
[2024-03-09 09:56] LABS: HCT 42.9 % (39.0-53.0); HGB 13.2 gm/dL (13.0-17.5); MCH 30.8 pg (25.0-35.0); MCHC 30.7 g/dL (31.0-37.0); MCV 100.5 fL (80.0-100.0); Mean Platelet Volume 7.6; Platelet Count 414 k/uL (150-450); RBC 4.27 m/uL (4.30-5.90); RDW 13.3 % (11.5-15.5); WBC 37.6 k/uL (3.8-10.6)
[2024-03-09] MEDS: amLODIPine 5 MG TAB PO SCH (09:56)
[2024-03-09] MEDS: TOPIRAMATE 100 MG TAB PO SCH (09:57)
[2024-03-09 10:13] LABS: African American GFR (CKD) >90 (>60 ml/min/1.73 sqM); Anion Gap 8 mmol/L; Blood Urea Nitrogen 28 mg/dL (9-20); Calcium 8.3 mg/dL (8.4-10.2); Carbon Dioxide 22 mmol/L (22-30); Chloride 104 mmol/L (98-107); Glucose 108 mg/dL (74-99); Non-African American GFR(CKD) 87 (>60 ml/min/1.73 sqM); Potassium 3.9 mmol/L (3.5-5.1); Sodium 134 mmol/L (137-145)
[2024-03-09] MEDS: AZITHROMYCIN 500 MG in SODIUM CHLORIDE 0.9% 250 ML IVPB SCH (10:46)
[2024-03-09] MEDS: methylPREDNISolone SOD SUCCI 125 MG/2 ML VIAL IV SCH (11:52)
--- NOTE | 2024-03-09 12:54 | P.PN ---
Subjective Progress Note Date: 03/09/24 Hospital Course: 53-year-old male with history of COPD, nicotine dependence, migraine attacks, hypertension presenting with shortness of breath. Chest x-ray in the emergency room revealed findings consistent with COPD along with diffuse airspace opacities concerning for pneumonitis versus pneumonia versus edema. EKG revealed sinus tachycardia at 117 bpm with an incomplete right bundle branch block . Laboratory evaluation was remarkable for leukocytosis of 38.5, hemoglobin 12.9, sodium 134, BUN 38, creatinine 1.25, glucose 124, troponin 0.015, and proBNP 2760. The patient had a Tmax of 100.3 F in the emergency room and was SpO2 92% on nonrebreather mask upon arrival. Started on [facility] hodilators, IV steroid, and IV antibiotics. Pulmonology also consulted. Subjective: Patient seen and examined at bedside. No acute events overnight. Claims that his breathing is slightly improved compared to when he first came in. Pertinent positives and negatives as discussed above, a complete review of systems was performed and all other systems are negative. Vitals Signs Reviewed. General: Nontoxic, no distress, appears at stated age, cachectic Derm: Warm, dry Head: Atraumatic, normocephalic, symmetric Eyes: EOMI, no lid lag, anicteric sclera Mouth: No lip lesion, mucus membranes moist Cardiovascular: S1S2 reg, no murmur Lungs: Bilateral Rales, no accessory muscle use, supplemental oxygen Abdominal: Soft, nontender to palpation, no guarding, no appreciable organomegaly Ext: No gross muscle atrophy, no edema, no contractures Neuro: CN II-XI grossly intact, no focal neuro deficits Psych: Alert, oriented, appropriate affect Data Reviewed Today: Pertinent Labs: WBC 37.6, hemoglobin 13.2, sodium 134, creatinine 0.98, urine Legionella negative Imaging: Chest x-ray independently interpreted, shows bibasilar interstitial opacities Assessment and Plan: Patient is severely ill, needs close monitoring., Prognosis guarded. Active: Acute hypoxic respiratory failure Acute COPD exacerbation Sepsis secondary to multifocal bacterial pneumonia Nicotine dependence -Continue IV azithromycin 500 mg daily, IV ceftriaxone 2 g every 24 hours -Blood cultures, sputum cultures pending, procalcitonin ordered by pulmonology -Continue IV fluids at 100 cc an hour, echocardiogram pending -Continue Solu-Medrol 60 every 6 hours IV, DuoNebs 4 times daily as needed and scheduled, albuterol every 4 hours as needed, budesonide twice daily, formoterol twice daily -Pulmonology consulted, pending recommendations -Counseled regarding smoking cessation -Continue to wean oxygen Chronic: Hypertension Migraine DVT ppx: Lovenox Code status: Full code Anticipated discharge place: Pending clinical course Anticipated discharge time: Pending clinical course Objective - Vital Signs Vital signs: Vital Signs Temp 98.6 F 03/09/24 11:58 Pulse 76 03/09/24 11:58 Resp 20 03/09/24 11:58 BP 129/76 03/09/24 11:58 Pulse Ox 97 03/09/24 11:58 FiO2 Intake & Output 03/08/24 03/09/24 03/09/24 18:59 06:59 18:59 Weight 47.627 kg - Labs CBC & Chem 7: 03/09/24 09:18 03/09/24 09:18 Labs: Abnormal Lab Results - Last 24 Hours (Table) 03/08/24 03/08/24 03/08/24 Range/Units 17:01 17:01 17:01 WBC 38.5 H (3.8-10.6) k/uL RBC 4.06 L (4.30-5.90) m/uL Hgb 12.9 L (13.0-17.5) gm/dL MCV (80.0-100.0) fL MCHC (31.0-37.0) g/dL Plt Count 455 H (150-450) k/uL Neutrophils # (Manual) 36.96 H (1.3-7.7) k/uL Lymphocytes # (Manual) 0.77 L (1.0-4.8) k/uL INR 1.2 H (<1.2) Sodium 134 L (137-145) mmol/L Carbon Dioxide 20 L (22-30) mmol/L BUN 38 H (9-20) mg/dL Glucose 124 H (74-99) mg/dL Calcium 8.3 L (8.4-10.2) mg/dL Alkaline Phosphatase 235 H (38-126) U/L 03/09/24 03/09/24 Range/Units 09:18 09:18 WBC 37.6 H (3.8-10.6) k/uL RBC 4.27 L (4.30-5.90) m/uL Hgb (13.0-17.5) gm/dL MCV 100.5 H (80.0-100.0) fL MCHC 30.7 L (31.0-37.0) g/dL Plt Count (150-450) k/uL Neutrophils # (Manual) (1.3-7.7) k/uL Lymphocytes # (Manual) (1.0-4.8) k/uL INR (<1.2) Sodium 134 L (137-145) mmol/L Carbon Dioxide (22-30) mmol/L BUN 28 H (9-20) mg/dL Glucose 108 H (74-99) mg/dL Calcium 8.3 L (8.4-10.2) mg/dL Alkaline Phosphatase (38-126) U/L
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
[2024-03-09] MEDS: NICOTINE 21MG/24HR PATCH TRANSDERM SCH (14:01)
[2024-03-09] MEDS: HYDROcodone/APAP 10-325MG 1 EACH TAB PO SCH (17:22)
--- NOTE | 2024-03-09 17:24 | CA ---
Transthoracic Echo Report Name: Loy Gonsales Age: 53 Gender: M : 1970 Exam Date: 03/09/2024 10:12 Exam Location: [facility] Ht (in): 72 Wt (lb): 105 Ordering Physician: Shirlene Morris MD Attending/Referring Phys: [employer] Worker Laura Rodriguez RDCS Procedure CPT: Indications: r/o chf Cardiac Hx: Technical Quality: Fair Contrast 1: Total Dose (mL): Contrast 2: Total Dose (mL): MEASUREMENTS (Male / Female) Normal Values 2D ECHO LV Diastolic Diameter PLAX 4.6 cm 4.2 - 5.9 / 3.9 - 5.3 cm LV Systolic Diameter PLAX 3.0 cm IVS Diastolic Thickness 1.0 cm 0.6 - 1.0 / 0.6 - 0.9 cm LVPW Diastolic Thickness 0.8 cm 0.6 - 1.0 / 0.6 - 0.9 cm LV Relative Wall Thickness 0.4 LVOT Diameter 1.7 cm LA Systolic Diameter LX 3.6 cm 3.0 - 4.0 / 2.7 - 3.8 cm LV Diastolic Volume MOD BP 90.9 cm??? 67 - 155 / 56 - 104 cm??? LV Systolic Volume MOD BP 33.2 cm??? 22 - 58 / 19 - 49 cm??? LV Ejection Fraction MOD BP 63.5 % >= 55 % LV Cardiac Index MOD BP 3133.6 cm???/min???m??? LV Diastolic Volume MOD 4C 88.4 cm??? LV Systolic Volume MOD 4C 30.1 cm??? LV Ejection Fraction MOD 4C 65.9 % LV Cardiac Index MOD 4C 3165.4 cm???/min???m??? LV Diastolic Length 4C 7.5 cm LV Systolic Length 4C 6.8 cm LV Diastolic Volume MOD 2C 93.0 cm??? LV Systolic Volume MOD 2C 38.1 cm??? LV Ejection Fraction MOD 2C 59.0 % LV Cardiac Index MOD 2C 2978.7 cm???/min???m??? LV Diastolic Length 2C 7.6 cm LV Systolic Length 2C 6.8 cm LA Volume 49.9 cm??? 18 - 58 / 22 - 52 cm??? LA Volume Index 32.7 cm???/m??? 16 - 28 cm???/m??? M-MODE Aortic Root Diameter MM 3.3 cm LA Systolic Diameter MM 2.4 cm LA Ao Ratio MM 0.7 AV Cusp Separation MM 1.3 cm DOPPLER AV Peak Velocity 298.2 cm/s AV Peak Gradient 35.6 mmHg AV Mean Velocity 219.6 cm/s AV Mean Gradient 21.7 mmHg AV Velocity Time Integral 60.5 cm AI Peak Velocity 492.3 cm/s AI Peak Gradient 96.9 mmHg AI Pressure Half Time 514.8 ms MV Area PHT 2.5 cm??? Mitral E Point Velocity 80.4 cm/s Mitral A Point Velocity 82.6 cm/s Mitral E to A Ratio 1.0 MV Deceleration Time 301.7 ms TR Peak Velocity 301.3 cm/s TR Peak Gradient 36.3 mmHg FINDINGS Left Ventricle Left ventricular ejection fraction is estimated at 55-60 %. Left ventricular cavity size normal. No obvious regional wall motion abnormalities. Left ventricular wall thickness normal. Right Ventricle Normal right ventricular size and function. Mild pulmonary hypertension. Right ventricular systolic pressure estimated at 36mm hg. Right Atrium Mild right atrial dilatation. Left Atrium Mildly increased left atrial volume. Mitral Valve Structurally normal mitral valve. Mild mitral regurgitation. No mitral stenosis. Aortic Valve Aortic valve not well visualized. Mild to moderate aortic stenosis with a peak gradient of 35mmHg and a mean gradient of 21 mmHg. Mild aortic regurgitation. Tricuspid Valve Structurally normal tricuspid valve. Mild tricuspid regurgitation. Pulmonic Valve Structurally normal pulmonic valve. Trace pulmonic regurgitation. No pulmonic stenosis. Pericardium No pericardial or pleural effusion. Aorta Normal size aortic root and proximal ascending aorta. CONCLUSIONS Normal LV function Mild to moderate aortic stenosis with mild aortic regurgitation Previewed by: Dr. Juan Antonio Harris MD (Electronically Signed) Final Date: 09 March 2024 17:23
[2024-03-09 20:26] LABS: Glucose,Whole Blood 138 mg/dL (70-110)
[2024-03-10 06:17] LABS: Glucose,Whole Blood 128 mg/dL (70-110)
[2024-03-10 09:00] LABS: African American GFR (CKD) >90 (>60 ml/min/1.73 sqM); Anion Gap 4 mmol/L; Blood Urea Nitrogen 29 mg/dL (9-20); Calcium 8.5 mg/dL (8.4-10.2); Carbon Dioxide 25 mmol/L (22-30); Chloride 106 mmol/L (98-107); Glucose 113 mg/dL (74-99); Non-African American GFR(CKD) >90 (>60 ml/min/1.73 sqM); Potassium 4.1 mmol/L (3.5-5.1); Sodium 135 mmol/L (137-145)
--- NOTE | 2024-03-10 09:41 | XR ---
EXAMINATION TYPE: XR chest 1V portable DATE OF EXAM: 03/10/2024 9:37 AM CLINICAL INDICATION:Male, 53 years old with history of Left sided pain, HX continues pneumo; [facility] COMPARISON: Chest radiographs from 03/09/2024. TECHNIQUE: XR chest 1V portable Frontal view of the chest. FINDINGS: Lungs/Pleura: Increased interstitial lung markings most proximal lung bases. Increased lucency along apices. Overall findings are worse compared to 2020. Correlate for superimposed airspace disease No e vidence for pneumothorax. No pleural effusion. Pulmonary vascularity: Unremarkable. Heart/mediastinum: Cardiomediastinal silhouette is unremarkable. Musculoskeletal: No acute osseous pathology. IMPRESSION: Interstitial lung disease with out evidence for pneumothorax. Findings are worse than 202 studies.
[2024-03-10 10:36] LABS: Basophils % (A) 0 %; Eosinophils % (A) 0 %; HCT 38.6 % (39.0-53.0); HGB 12.3 gm/dL (13.0-17.5); Lymphocytes # (A) 0.7 k/uL (1.0-4.8); Lymphocytes % (A) 4 %; MCH 31.5 pg (25.0-35.0); MCHC 31.9 g/dL (31.0-37.0); MCV 98.6 fL (80.0-100.0); Monocytes # (A) 0.6 k/uL (0-1.0); Monocytes % (A) 3 %; Neutrophils # (A) 16.7 k/uL (1.3-7.7); Neutrophils % (A) 92 %; Platelet Count 427 k/uL (150-450); RBC 3.91 m/uL (4.30-5.90); RDW 13.6 % (11.5-15.5); WBC 18.1 k/uL (3.8-10.6)
[2024-03-10 11:28] LABS: Glucose,Whole Blood 122 mg/dL (70-110)
--- NOTE | 2024-03-10 12:16 | P.PN ---
Subjective Progress Note Date: 03/10/24 Hospital Course: 53-year-old male with history of COPD, nicotine dependence, migraine attacks, hypertension presenting with shortness of breath. Chest x-ray in the emergency room revealed findings consistent with COPD along with diffuse airspace opacities concerning for pneumonitis versus pneumonia versus edema. EKG revealed sinus tachycardia at 117 bpm with an incomplete right bundle branch block . Laboratory evaluation was remarkable for leukocytosis of 38.5, hemoglobin 12.9, sodium 134, BUN 38, creatinine 1.25, glucose 124, troponin 0.015, and proBNP 2760. The patient had a Tmax of 100.3 F in the emergency room and was SpO2 92% on nonrebreather mask upon arrival. Started on [facility] hodilators, IV steroid, and IV antibiotics. Pulmonology also consulted. Subjective: Patient seen and examined at bedside. No acute events overnight. Breathing is slightly improved. Having left-sided chest pain worse with deep breaths and cough. Pertinent positives and negatives as discussed above, a complete review of systems was performed and all other systems are negative. Vitals Signs Reviewed. General: Nontoxic, no distress, appears at stated age, cachectic Derm: Warm, dry Head: Atraumatic, normocephalic, symmetric Eyes: EOMI, no lid lag, anicteric sclera Mouth: No lip lesion, mucus membranes moist Cardiovascular: S1S2 reg, no murmur Lungs: Bilateral Rales, no accessory muscle use, supplemental oxygen Abdominal: Soft, nontender to palpation, no guarding, no appreciable orga nomegaly Ext: No gross muscle atrophy, no edema, no contractures Neuro: CN II-XI grossly intact, no focal neuro deficits Psych: Alert, oriented, appropriate affect Data Reviewed Today: Pertinent Labs: WBC 18.1, hemoglobin 12.3, sodium 135, creatinine 0.91, blood sugars range between 1 13-1 28 Imaging: Chest x-ray independently interpreted, shows bibasilar interstitial opacities, no evidence of pneumothorax Assessment and Plan: Patient is severely ill, needs close monitoring., Prognosis guarded. Active: Acute hypoxic respiratory failure Acute COPD exacerbation Sepsis secondary to multifocal bacterial pneumonia Nicotine dependence -Continue IV azithromycin 500 mg daily, IV ceftriaxone 2 g every 24 hours -Blood cultures, sputum cultures pending -Continue IV fluids at 100 cc an hour -Echocardiogram shows normal LV function, mild to moderate aortic stenosis -Continue Solu-Medrol 60 every 6 hours IV, DuoNebs 4 times daily as needed and scheduled, albuterol every 4 hours as needed, budesonide twice daily, formoterol twice daily -Pulmonology following -Counseled regarding smoking cessation, patient on nicotine patch 21 mg daily -Continue to wean oxygen Chronic: Hypertension Migraine DVT ppx: Lovenox Code status: Full code Anticipated discharge place: Pending clinical course Anticipated discharge time: Pending clinical course Objective - Vital Signs Vital signs: Vital Signs Temp 98.2 F 03/10/24 09:15 Pulse 75 03/10/24 11:59 Resp 18 03/10/24 11:57 BP 146/87 03/10/24 11:57 Pulse Ox 94 L 03/10/24 11:57 FiO2 Intake & Output 03/09/24 03/10/24 03/10/24 18:59 06:59 18:59 Intake Total 10 260 10 Output Total 360 Balance 10 -100 10 Weight 47.627 kg Intake: IV 10 20 10 Invasive Line 2 10 20 10 Oral 240 0 Output: Urine 360 Other: Voiding Method Urinal Urinal Urinal # Voids 1 - Labs CBC & Chem 7: 03/10/24 09:59 03/10/24 08:23 Labs: Abnormal Lab Results - Last 24 Hours (Table) 03/09/24 03/09/24 03/10/24 Range/Units 09:18 20:22 06:15 WBC (3.8-10.6) k/uL RBC (4.30-5.90) m/uL Hgb (13.0-17.5) gm/dL Hct (39.0-53.0) % Neutrophils # (1.3-7.7) k/uL Lymphocytes # (1.0-4.8) k/uL Sodium (137-145) mmol/L BUN (9-20) mg/dL Glucose (74-99) mg/dL POC Glucose (mg/dL) 138 H 128 H (70-110) mg/dL Procalcitonin 13.40 H (0.02-0.09) ng/mL 03/10/24 03/10/24 03/10/24 Range/Units 08:23 09:59 11:27 WBC 18.1 H (3.8-10.6) k/uL RBC 3.91 L (4.30-5.90) m/uL Hgb 12.3 L (13.0-17.5) gm/dL Hct 38.6 L (39.0-53.0) % Neutrophils # 16.7 H (1.3-7.7) k/uL Lymphocytes # 0.7 L (1.0-4.8) k/uL Sodium 135 L (137-145) mmol/L BUN 29 H (9-20) mg/dL Glucose 113 H (74-99) mg/dL POC Glucose (mg/dL) 122 H (70-110) mg/dL Procalcitonin (0.02-0.09) ng/mL Microbiology - Last 24 Hours (Table) 03/09/24 15:10 Gram Stain - Preliminary Sputum 03/08/24 18:15 Blood Culture - Preliminary Blood 03/08/24 18:30 Blood Culture - Preliminary Blood
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
[2024-03-10 16:27] LABS: Glucose,Whole Blood 149 mg/dL (70-110)
[2024-03-10] MEDS: DILTIAZEM 125 MG in SODIUM CHLORIDE 0.9% 100 ML IV SCH (17:28)
[2024-03-10 20:15] LABS: Glucose,Whole Blood 115 mg/dL (70-110)
[2024-03-11 05:40] LABS: Glucose,Whole Blood 120 mg/dL (70-110)
[2024-03-11 08:31] LABS: Basophils % (A) 0 %; Eosinophils % (A) 0 %; HCT 37.2 % (39.0-53.0); Lymphocytes # (A) 0.7 k/uL (1.0-4.8); Lymphocytes % (A) 4 %; MCH 31.5 pg (25.0-35.0); MCHC 32.3 g/dL (31.0-37.0); MCV 97.7 fL (80.0-100.0); Mean Platelet Volume 8.1; Monocytes # (A) 0.5 k/uL (0-1.0); Monocytes % (A) 3 %; Neutrophils # (A) 13.7 k/uL (1.3-7.7); Neutrophils % (A) 90 %; Platelet Count 469 k/uL (150-450); RBC 3.81 m/uL (4.30-5.90); RDW 13.6 % (11.5-15.5); WBC 15.2 k/uL (3.8-10.6)
[2024-03-11 08:32] LABS: African American GFR (CKD) >90 (>60 ml/min/1.73 sqM); Anion Gap 4 mmol/L; Blood Urea Nitrogen 30 mg/dL (9-20); Calcium 8.3 mg/dL (8.4-10.2); Carbon Dioxide 24 mmol/L (22-30); Chloride 108 mmol/L (98-107); Glucose 119 mg/dL (74-99); Magnesium 2.4 mg/dL (1.6-2.3); Non-African American GFR(CKD) >90 (>60 ml/min/1.73 sqM); Potassium 4.2 mmol/L (3.5-5.1); Sodium 136 mmol/L (137-145)
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
[2024-03-11] MEDS: METOPROLOL TARTRATE 25 MG TAB PO SCH (10:26)
--- NOTE | 2024-03-11 10:29 | P.PN ---
Subjective Progress Note Date: 03/11/24 Hospital Course: 53-year-old male with history of COPD, nicotine dependence, migraine attacks, hypertension presenting with shortness of breath. Chest x-ray in the emergency room revealed findings consistent with COPD along with diffuse airspace opacities concerning for pneumonitis versus pneumonia versus edema. EKG revealed sinus tachycardia at 117 bpm with an incomplete right bundle branch block . Laboratory evaluation was remarkable for leukocytosis of 38.5, hemoglobin 12.9, sodium 134, BUN 38, creatinine 1.25, glucose 124, troponin 0.015, and proBNP 2760. The patient had a Tmax of 100.3 F in the emergency room and was SpO2 92% on nonrebreather mask upon arrival. Started on bron hodilators, IV steroid, and IV antibiotics. Pulmonology also consulted. Patient also developed atrial fibrillation, cardiology consulted. On Cardizem drip. Subjective: Patient seen and examined at bedside. No acute events overnight. Breathing is slightly improved. Having left-sided chest pain worse with deep breaths and cough. Denies any palpitations. Pertinent positives and negatives as discussed above, a complete review of systems was performed and all other systems are negative. Vitals Signs Reviewed. General: Nontoxic, no distress, appears at stated age, cachectic Derm: Warm, dry Head: Atraumatic, normocephalic, symmetric Eyes: EOMI, no lid lag, anicteric sclera Mouth: No lip lesion, mucus membranes moist Cardiovascular: S1S2 irregular, no murmur Lungs: Bilateral Rales, no accessory muscle use, supplemental oxygen Abdominal: Soft, nontender to palpation, no guarding, no appreciable organomegaly Ext: No gross muscle atrophy, no edema, no contractures Neuro: CN II-XI grossly intact, no focal neuro deficits Psych: Alert, oriented, appropriate affect Data Reviewed Today: Pertinent Labs: WBC 15.2, hemoglobin 12, platelet 469, sodium 136, creatinine 0.95, magnesium 2.4, glucose range between 1 15-1 49 Imaging: No new imaging Assessment and Plan: Patient is severely ill, needs close monitoring., Prognosis guarded. Active: Acute hypoxic respiratory failure Acute COPD exacerbation Sepsis secondary to multifocal bacterial pneumonia Nicotine dependence -Continue IV ceftriaxone 2 g every 24 hours, status post IV azithromycin -Blood cultures, sputum cultures pending -Echocardiogram shows normal LV function, mild to moderate aortic stenosis -Continue Solu-Medrol 60 every 6 hours IV, DuoNebs 4 times daily as needed and scheduled, albuterol every 4 hours as needed, budesonide twice daily, formoterol twice daily -Pulmonology following -Counseled regarding smoking cessation, patient on nicotine patch 21 mg daily -Continue to wean oxygen New onset atrial fibrillation -Cardiology note reviewed, continue on IV Cardizem drip, monitor heart rate closely, may need cardioversion if heart rate uncontrolled -Amlodipine discontinued -Lovenox increased to 40 subQ twice daily Chronic: Hypertension Migraine DVT ppx: Lovenox Code status: Full code Anticipated discharge place: Pending clinical course Anticipated discharge time: Pending clinical course Objective - Vital Signs Vital signs: Vital Signs Temp 97.9 F 03/11/24 08:40 Pulse 64 03/11/24 09:50 Resp 19 03/11/24 09:50 BP 135/84 03/11/24 08:40 Pulse Ox 97 03/11/24 08:40 FiO2 Intake & Output 03/10/24 03/11/24 03/11/24 18:59 06:59 18:59 Intake Total 540 100.667 65.833 Output Total 700 940 Balance -160 -839.333 65.833 Intake: IV 20 Invasive Line 2 20 Intake, IV Titration 100.667 65.833 Amount Diltiazem 125 mg In 100.667 65.833 Sodium Chloride 0.9% 100 ml @ 10 MG/HR 10 mls/hr IV .[id number] [facility] Rx#: [id number] Oral 520 Output: Urine 700 940 Other: Voiding Method Urinal Urinal Urinal # Voids 1 1 # Bowel Movements 1 - Labs CBC & Chem 7: 03/11/24 07:32 03/11/24 07:32 Labs: Abnormal Lab Results - Last 24 Hours (Table) 03/10/24 03/10/24 03/10/24 Range/Units 09:59 11:27 16:26 WBC 18.1 H (3.8-10.6) k/uL RBC 3.91 L (4.30-5.90) m/uL Hgb 12.3 L (13.0-17.5) gm/dL Hct 38.6 L (39.0-53.0) % Plt Count (150-450) k/uL Neutrophils # 16.7 H (1.3-7.7) k/uL Lymphocytes # 0.7 L (1.0-4.8) k/uL Sodium (137-145) mmol/L Chloride (98-107) mmol/L BUN (9-20) mg/dL Glucose (74-99) mg/dL POC Glucose (mg/dL) 122 H 149 H (70-110) mg/dL Calcium (8.4-10.2) mg/dL Magnesium (1.6-2.3) mg/dL 03/10/24 03/11/24 03/11/24 Range/Units 20:14 05:39 07:32 WBC 15.2 H (3.8-10.6) k/uL RBC 3.81 L (4.30-5.90) m/uL Hgb 12.0 L (13.0-17.5) gm/dL Hct 37.2 L (39.0-53.0) % Plt Count 469 H (150-450) k/uL Neutrophils # 13.7 H (1.3-7.7) k/uL Lymphocytes # 0.7 L (1.0-4.8) k/uL Sodium (137-145) mmol/L Chloride (98-107) mmol/L BUN (9-20) mg/dL Glucose (74-99) mg/dL POC Glucose (mg/dL) 115 H 120 H (70-110) mg/dL Calcium (8.4-10.2) mg/dL Magnesium (1.6-2.3) mg/dL 03/11/24 Range/Units 07:32 WBC (3.8-10.6) k/uL RBC (4.30-5.90) m/uL Hgb (13.0-17.5) gm/dL Hct (39.0-53.0) % Plt Count (150-450) k/uL Neutrophils # (1.3-7.7) k/uL Lymphocytes # (1.0-4.8) k/uL Sodium 136 L (137-145) mmol/L Chloride 108 H (98-107) mmol/L BUN 30 H (9-20) mg/dL Glucose 119 H (74-99) mg/dL POC Glucose (mg/dL) (70-110) mg/dL Calcium 8.3 L (8.4-10.2) mg/dL Magnesium 2.4 H (1.6-2.3) mg/dL Microbiology - Last 24 Hours (Table) 03/09/24 15:10 Gram Stain - Final Sputum Sputum Culture - Final Adwoa albicans 03/08/24 18:15 Blood Culture - Preliminary Blood 03/08/24 18:30 Blood Culture - Preliminary Blood
[2024-03-11 11:16] LABS: Glucose,Whole Blood 156 mg/dL (70-110)
--- NOTE | 2024-03-11 12:41 | P.PN ---
Subjective Progress Note Date: 03/11/24 This is a pleasant 53-year-old male patient with a known history of chronic and ongoing tobacco dependence for 40 years smoking up to 2 packs/day with previous spontaneous pneumothoraces. He also has a history of hypertension and migraines. He presented here to the emergency room with severe shortness of breath, cough congestion. Chest x-ray shows COPD with superimposed interstitial lung disease and bibasilar airspace disease. White count 37.6. Hemoglobin 13.2. Sodium 134. Potassium 3.9. Bicarb 22. BUN 28. Creatinine 0.98. proBNP 2760. Legionella screen negative. He is seen today in consultation in the emergency department. He is currently sitting up in a stretcher. Awake and alert. He is requiring 9 L high flow nasal cannula to maintain O2 saturations in the 90s. He is dyspneic with conversation. Dyspneic with exertion. He has normal saline at 80 MLS per hour. He has been initiated on ceftriaxone and azithromycin. The patient is seen today March 10, 2024 in follow-up on the selective care unit. He is currently sitting up in bed. Awake and alert in no acute distress. Breathing quite a bit easier today compared to yesterday. He is maintaining O2 saturations in the 90s on 5 L/min per nasal cannula. He is afebrile. Hemodynamically stable. Chest x-ray reveals interstitial infection and evidence of COPD. Blood cultures reveal no growth thus far. Sputum culture pending. White count 18.1. Hemoglobin 12.3. Platelets 427. Sodium 135. Potassium 4.1. Bicarb 25. BUN 29. Creatinine 0.91. Glucose 113. Procalcitonin 13.1. Echocardiogram revealed preserved left ventricular systolic function. Mild to moderate aortic stenosis. He remains on DuoNeb inhalations, Pulmicort and Perforomist inhalations, Solu-Medrol. NicoDerm patch in place. Antibiotics in the form of ceftriaxone. Lovenox for DVT prophylaxis. Normal saline at 100 MLS per hour. The patient is seen today March 11, 2024 in follow-up on the selective care unit. He is awake and alert in no acute distress. Sitting up in sitting up in bed. Denies any worsening shortness of breath, cough or congestion. He is still on 7 L high flow nasal cannula to maintain O2 saturation in the 90s. He did develop atrial fibrillation last evening. He is on a Cardizem drip at 5 mg/h. Normal saline at KVO. Still somewhat bronchospastic and wheezing. He remains on DuoNeb ventilations, Pulmicort and Perforomist inhalations, Solu-Medrol. NicoDerm patch in place. Lovenox for anticoagulation. Remains on ceftriaxone. White count 15.2. Hemoglobin 12.0. Platelets 469. Sodium 136. Potassium 4.2. Bicarb 24. BUN 30. Creatinine 0.95. Troponin negative. Objective - Vital Signs Vital signs: Vital Signs Temp 97.9 F 03/11/24 08:40 Pulse 92 03/11/24 12:12 Resp 19 03/11/24 12:03 BP 125/75 03/11/24 12:03 Pulse Ox 98 03/11/24 12:03 FiO2 Intake & Output 03/10/24 03/11/24 03/11/24 18:59 06:59 18:59 Intake Total 540 100.667 185.833 Output Total 700 940 Balance -160 -839.333 185.833 Intake: IV 20 Invasive Line 2 20 Intake, IV Titration 100.667 65.833 Amount Diltiazem 125 mg In 100.667 65.833 Sodium Chloride 0.9% 100 ml @ 10 MG/HR 10 mls/hr IV .[id number] [facility] Rx#: [id number] Oral 520 120 Output: Urine 700 940 Other: Voiding Method Urinal Urinal Urinal # Voids 1 1 # Bowel Movements 1 - Exam GENERAL EXAM: Alert, 53-year-old male, on 7 L high flow nasal cannula, in no acute distress. HEAD: Normocephalic. EYES: Normal reaction of pupils, equal size. NOSE: Clear with pink turbinates. THROAT: No erythema or exudates. NECK: No masses, no JVD. CHEST: No chest wall deformity. LUNGS: Equal air entry with bilateral scattered rhonchi, wheeze, diminished. CVS: S1 and S2 normal with no audible murmur, irregular rhythm. ABDOMEN: No hepatosplenomegaly, normal bowel sounds, no guarding or rigidity. SPINE: No scoliosis or deformity SKIN: No rashes CENTRAL NERVOUS SYSTEM: No focal deficits, tone is normal in all 4 extremities. EXTREMITIES: There is no peripheral edema. No clubbing, no cyanosis. Peripheral pulses are intact. - Labs CBC & Chem 7: 03/11/24 07:32 03/11/24 07:32 Labs: Abnormal Lab Results - Last 24 Hours (Table) 03/10/24 03/10/24 03/11/24 Range/Units 16:26 20:14 05:39 WBC (3.8-10.6) k/uL RBC (4.30-5.90) m/uL Hgb (13.0-17.5) gm/dL Hct (39.0-53.0) % Plt Count (150-450) k/uL Neutrophils # (1.3-7.7) k/uL Lymphocytes # (1.0-4.8) k/uL Sodium (137-145) mmol/L Chloride (98-107) mmol/L BUN (9-20) mg/dL Glucose (74-99) mg/dL POC Glucose (mg/dL) 149 H 115 H 120 H (70-110) mg/dL Calcium (8.4-10.2) mg/dL Magnesium (1.6-2.3) mg/dL 03/11/24 03/11/24 03/11/24 Range/Units 07:32 07:32 11:16 WBC 15.2 H (3.8-10.6) k/uL RBC 3.81 L (4.30-5.90) m/uL Hgb 12.0 L (13.0-17.5) gm/dL Hct 37.2 L (39.0-53.0) % Plt Count 469 H (150-450) k/uL Neutrophils # 13.7 H (1.3-7.7) k/uL Lymphocytes # 0.7 L (1.0-4.8) k/uL Sodium 136 L (137-145) mmol/L Chloride 108 H (98-107) mmol/L BUN 30 H (9-20) mg/dL Glucose 119 H (74-99) mg/dL POC Glucose (mg/dL) 156 H (70-110) mg/dL Calcium 8.3 L (8.4-10.2) mg/dL Magnesium 2.4 H (1.6-2.3) mg/dL Microbiology - Last 24 Hours (Table) 06/07/24 15:10 Gram Stain - Final Sputum Sputum Culture - Final Adwoa albicans 03/08/24 18:15 Blood Culture - Preliminary Blood 03/08/24 18:30 Blood Culture - Preliminary Blood Assessment and Plan Assessment: Acute hypoxic respiratory failure secondary to an acute exacerbation of suspected severe chronic obstructive pulmonary disease with underlying acute community-acquired pneumonia. Procalcitonin 13.4. Remains on ceftriaxone New onset of atrial fibrillation with rapid ventricular response, currently on a Cardizem drip, therapeutic Lovenox Chronic and ongoing tobacco dependence of greater than 40 years at 2 packs/day Mild to moderate aortic stenosis Hypertension History of migraines Plan: The patient was seen and evaluated Labs and medications reviewed Continue ceftriaxone Continue bronchodilators and steroids Cardizem drip continues Therapeutic Lovenox Titrate the FiO2 as tolerated NicoDerm patch in place We will continue to follow I have personally seen and examined the patient, performed the documentation and the assessment and plan as written. Number of minutes spent on the visit: 10.
[2024-03-11 16:36] LABS: Glucose,Whole Blood 116 mg/dL (70-110)
[2024-03-11 20:22] LABS: Glucose,Whole Blood 190 mg/dL (70-110)
[2024-03-11] MEDS: ENOXAPARIN 40 MG/0.4 ML SYRINGE SQ SCH (21:25)
[2024-03-12 06:17] LABS: Glucose,Whole Blood 115 mg/dL (70-110)
[2024-03-12 08:02] LABS: Basophils % (A) 0 %; Eosinophils % (A) 0 %; HCT 34.8 % (39.0-53.0); HGB 11.5 gm/dL (13.0-17.5); Lymphocytes # (A) 0.8 k/uL (1.0-4.8); Lymphocytes % (A) 7 %; MCH 32.3 pg (25.0-35.0); MCHC 33.1 g/dL (31.0-37.0); MCV 97.4 fL (80.0-100.0); Mean Platelet Volume 7.8; Monocytes # (A) 0.3 k/uL (0-1.0); Monocytes % (A) 3 %; Neutrophils # (A) 10.8 k/uL (1.3-7.7); Neutrophils % (A) 89 %; Platelet Count 482 k/uL (150-450); RBC 3.58 m/uL (4.30-5.90); RDW 13.5 % (11.5-15.5); WBC 12.2 k/uL (3.8-10.6)
[2024-03-12 08:19] LABS: African American GFR (CKD) >90 (>60 ml/min/1.73 sqM); Anion Gap 1 mmol/L; Blood Urea Nitrogen 31 mg/dL (9-20); Calcium 8.2 mg/dL (8.4-10.2); Carbon Dioxide 27 mmol/L (22-30); Chloride 109 mmol/L (98-107); Glucose 113 mg/dL (74-99); Magnesium 2.4 mg/dL (1.6-2.3); Non-African American GFR(CKD) >90 (>60 ml/min/1.73 sqM); Potassium 4.3 mmol/L (3.5-5.1); Sodium 137 mmol/L (137-145)
[2024-03-12 11:22] LABS: Glucose,Whole Blood 156 mg/dL (70-110)
[2024-03-12] MEDS: METOPROLOL TARTRATE 50 MG TAB PO SCH (11:45)
[2024-03-12] MEDS: ASPIRIN 81 MG PO SCH (11:45)
[2024-03-12 12:07] VITALS: BMI 18.6
--- NOTE | 2024-03-12 12:37 | P.PN ---
Subjective HISTORY OF PRESENT ILLNESS: This is a 53-year-old gentleman with a past medical history significant for hypertension and smoking and chronic obstructive pulmonary disease who was admitted to the hospital with pneumonia and COPD exacerbation. He presented to the hospital complaining of shortness of breath associated with cough productive of sputum with no fever and no chills no symptoms of chest pain or chest discomfort or dizziness or lightheadedness or any presyncope or syncope. He was found to be hypoxic requiring oxygen and he was admitted and was diagnosed with acute hypoxic respiratory failure secondary to COPD and pneumonia. We consulted to see the patient because of atrial fibrillation which is known. The patient did not have any feeling of heart racing or fluttering. He continues to be in atrial fibrillation. He was started on Cardizem IV. No history of atrial fibrillation before and no history of coronary artery disease or congestive heart failure or any cardiac arrhythmia. 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 Currently he is in atrial fibrillation with controlled heart rate on the current dose of Cardizem which is 10 mg IV per hour. The chest x-ray showed finding consistent with a pneumonia. The rest of the blood work overall came in to be unremarkable. He underwent an echo during his hospit al stay and that showed normal biventricular dimension and systolic function with mild to moderate aortic stenosis. The examination is remarkable for irregular rhythm with a systolic murmur at the right and left upper sternal border with diminished breathing sounds bilaterally but no wheezing and no edema was noted in the lower extremities. March 12, 2024 Patient examined this morning at the bedside. Patient currently denies chest pain or pressure. He reports mild shortness of breath. He continues to have a cough at the time of examination. He remains in atrial fibrillation with heart rate around 120. Patient states he was a 2 pack-a-day smoker until he was admitted to the hospital. He also reports marijuana use. PHYSICAL EXAM: VITAL SIGNS: Reviewed. GENERAL: Well-developed in no acute distress. NECK: Supple. No JVD or thyromegaly LUNGS: Respirations even and unlabored. Lungs with rhonchi. Frequent coughing noted. HEART: Tachycardic. Irregular rate and rhythm. S1 and S2 heard. EXTREMITIES: Normal range of motion. No clubbing or cyanosis. Peripheral pulses intact. No lower extremity edema ASSESSMENT: Shortness of breath Pneumonia Acute COPD exacerbation Acute hypoxic respiratory failure New onset atrial fibrillation with RVR Hypertension Valvular heart disease Nicotine dependence with recent cessation, patient smoking 2 packs/day Significant caffeine use on an outpatient basis with coffee and a 2 L of soda daily Marijuana use PLAN: Discontinue IV Cardizem Increase metoprolol tartrate to 50 mg twice a day Continue telemetry monitoring Patient with [id number] of 1. Decrease Lovenox to 40 mg subcu daily for DVT prophylaxis. Add aspirin 81mg daily. Patient does not meet indications for long-term anticoagulation. Smoking cessation recommended. Patient to be referred to [place] quitline upon discharge. Patient instructed to decrease caffeine eye Further recommendations pending patient course Nurse practitioner note has been reviewed by physician. Signing provider agrees with the documented findings, assessment, and plan of care documented by VICE CHANCELLOR as a scribe. Objective - Vital Signs Vital signs: Vital Signs Temp 97.8 F 03/12/24 08:12 Pulse 76 03/12/24 12:22 Resp 16 03/12/24 11:39 BP 144/89 03/12/24 11:39 Pulse Ox 91 L 03/12/24 11:46 FiO2 Intake & Output 03/11/24 03/12/24 03/12/24 18:59 06:59 18:59 Intake Total 305.833 118 Balance 305.833 118 Weight 57.425 kg Intake: Intake, IV Titration 65.833 Amount Diltiazem 125 mg In 65.833 Sodium Chloride 0.9% 100 ml @ 10 MG/HR 10 mls/hr IV .[id number] [facility] Rx#: [id number] Oral 240 118 Other: Voiding Method Urinal Urinal # Voids 2 - Labs CBC & Chem 7: 03/12/24 06:55 03/12/24 06:55 Labs: Abnormal Lab Results - Last 24 Hours (Table) 03/11/24 03/11/24 03/12/24 Range/Units 16:34 20:21 06:14 WBC (3.8-10.6) k/uL RBC (4.30-5.90) m/uL Hgb (13.0-17.5) gm/dL Hct (39.0-53.0) % Plt Count (150-450) k/uL Neutrophils # (1.3-7.7) k/uL Lymphocytes # (1.0-4.8) k/uL Chloride (98-107) mmol/L BUN (9-20) mg/dL Glucose (74-99) mg/dL POC Glucose (mg/dL) 116 H 190 H 115 H (70-110) mg/dL Calcium (8.4-10.2) mg/dL Magnesium (1.6-2.3) mg/dL 03/12/24 03/12/24 03/12/24 Range/Units 06:55 06:55 11:21 WBC 12.2 H (3.8-10.6) k/uL RBC 3.58 L (4.30-5.90) m/uL Hgb 11.5 L (13.0-17.5) gm/dL Hct 34.8 L (39.0-53.0) % Plt Count 482 H (150-450) k/uL Neutrophils # 10.8 H (1.3-7.7) k/uL Lymphocytes # 0.8 L (1.0-4.8) k/uL Chloride 109 H (98-107) mmol/L BUN 31 H (9-20) mg/dL Glucose 113 H (74-99) mg/dL POC Glucose (mg/dL) 156 H (70-110) mg/dL Calcium 8.2 L (8.4-10.2) mg/dL Magnesium 2.4 H (1.6-2.3) mg/dL Microbiology - Last 24 Hours (Table) 03/08/24 18:15 Blood Culture - Preliminary Blood 03/08/24 18:30 Blood Culture - Preliminary Blood 03/09/24 15:10 Gram Stain - Final Sputum Sputum Culture - Final Adwoa albicans
--- NOTE | 2024-03-12 13:12 | P.PN ---
Subjective Progress Note Date: 03/12/24 Hospital Course: 53-year-old male with history of COPD, nicotine dependence, migraine attacks, hypertension presenting with shortness of breath. Chest x-ray in the emergency room revealed findings consistent with COPD along with diffuse airspace opacities concerning for pneumonitis versus pneumonia versus edema. EKG revealed sinus tachycardia at 117 bpm with an incomplete right bundle branch block . Laboratory evaluation was remarkable for leukocytosis of 38.5, hemoglobin 12.9, sodium 134, BUN 38, creatinine 1.25, glucose 124, troponin 0.015, and proBNP 2760. The patient had a Tmax of 100.3 F in the emergency room and was SpO2 92% on nonrebreather mask upon arrival. Started on bronc hodilators, IV steroid, and IV antibiotics. Pulmonology also consulted. Patient also developed atrial fibrillation, cardiology consulted. Was started on Cardizem drip. Now on increased dose of oral metoprolol. Subjective: Patient seen and examined at bedside. No acute events overnight. Breathing is slightly improved. Pertinent positives and negatives as discussed above, a complete review of systems was performed and all other systems are negative. Vitals Signs Reviewed. General: Nontoxic, no distress, appears at stated age, cachectic Derm: Warm, dry Head: Atraumatic, normocephalic, symmetric Eyes: EOMI, no lid lag, anicteric sclera Mouth: No lip lesion, mucus membranes moist Cardiovascular: S1S2 irregular, no murmur Lungs: Bilateral Rales, no accessory muscle use, supplemental oxygen Abdominal: Soft, nontender to palpation, no guarding, no appreciable organomegaly Ext: No gross muscle atrophy, no edema, no contractures Neuro: CN II-XI grossly intact, no focal neuro deficits Psych: Alert, oriented, appropriate affect Data Reviewed Today: Pertinent Labs: WBC 12.2, hemoglobin 11.5, platelet 482, creatinine 0.87, blood sugars range between 1 13-1 56, magnesium 2.4 Imaging: No new imaging Assessment and Plan: Patient is severely ill, needs close monitoring., Prognosis guarded. Active: Acute hypoxic respiratory failure Acute COPD exacerbation Sepsis secondary to multifocal bacterial pneumonia Nicotine dependence -Continue IV ceftriaxone 2 g every 24 hours, status post IV azithromycin -Blood cultures negative, sputum cultures positive for Adwoa, likely normal oral earl -Echocardiogram shows normal LV function, mild to moderate aortic stenosis -Continue Solu-Medrol 60 every 6 hours IV, DuoNebs 4 times daily as needed and scheduled, albuterol every 4 hours as needed, budesonide twice daily, formoterol twice daily -Pulmonology following -Counseled regarding smoking cessation, patient on nicotine patch 21 mg daily -Continue to wean oxygen New onset atrial fibrillation, now rate controlled -Cardiology note reviewed, IV Cardizem discontinued, started on oral metoprolol 50 twice daily -Amlodipine discontinued -Lovenox decreased to 40 subcu daily, patient does not need anticoagulation given low [id number] score Chronic: Hypertension Migraine DVT ppx: Lovenox Code status: Full code Anticipated discharge place: Pending clinical course Anticipated discharge time: Pending clinical course Objective - Vital Signs Vital signs: Vital Signs Temp 97.8 F 03/12/24 08:12 Pulse 72 03/12/24 12:32 Resp 16 03/12/24 11:39 BP 144/89 03/12/24 11:39 Pulse Ox 91 L 03/12/24 11:46 FiO2 Intake & Output 03/11/24 03/12/24 03/12/24 18:59 06:59 18:59 Intake Total 305.833 118 Balance 305.833 118 Weight 57.425 kg Intake: Intake, IV Titration 65.833 Amount Diltiazem 125 mg In 65.833 Sodium Chloride 0.9% 100 ml @ 10 MG/HR 10 mls/hr IV .[id number] [facility] Rx#: [id number] Oral 240 118 Other: Voiding Method Urinal Urinal # Voids 2 - Labs CBC & Chem 7: 03/12/24 06:55 03/12/24 06:55 Labs: Abnormal Lab Results - Last 24 Hours (Table) 03/11/24 03/11/24 03/12/24 Range/Units 16:34 20:21 06:14 WBC (3.8-10.6) k/uL RBC (4.30-5.90) m/uL Hgb (13.0-17.5) gm/dL Hct (39.0-53.0) % Plt Count (150-450) k/uL Neutrophils # (1.3-7.7) k/uL Lymphocytes # (1.0-4.8) k/uL Chloride (98-107) mmol/L BUN (9-20) mg/dL Glucose (74-99) mg/dL POC Glucose (mg/dL) 116 H 190 H 115 H (70-110) mg/dL Calcium (8.4-10.2) mg/dL Magnesium (1.6-2.3) mg/dL 03/12/24 03/12/24 03/12/24 Range/Units 06:55 06:55 11:21 WBC 12.2 H (3.8-10.6) k/uL RBC 3.58 L (4.30-5.90) m/uL Hgb 11.5 L (13.0-17.5) gm/dL Hct 34.8 L (39.0-53.0) % Plt Count 482 H (150-450) k/uL Neutrophils # 10.8 H (1.3-7.7) k/uL Lymphocytes # 0.8 L (1.0-4.8) k/uL Chloride 109 H (98-107) mmol/L BUN 31 H (9-20) mg/dL Glucose 113 H (74-99) mg/dL POC Glucose (mg/dL) 156 H (70-110) mg/dL Calcium 8.2 L (8.4-10.2) mg/dL Magnesium 2.4 H (1.6-2.3) mg/dL Microbiology - Last 24 Hours (Table) 03/08/24 18:15 Blood Culture - Preliminary Blood 03/08/24 18:30 Blood Culture - Preliminary Blood
[2024-03-12 16:21] LABS: Glucose,Whole Blood 110 mg/dL (70-110)
--- NOTE | 2024-03-12 17:36 | P.PN ---
Subjective Progress Note Date: 03/12/24 This is a pleasant 53-year-old male patient with a known history of chronic and ongoing tobacco dependence for 40 years smoking up to 2 packs/day with previous spontaneous pneumothoraces. He also has a history of hypertension and migraines. He presented here to the emergency room with severe shortness of breath, cough congestion. Chest x-ray shows COPD with superimposed interstitial lung disease and bibasilar airspace disease. White count 37.6. Hemoglobin 13.2. Sodium 134. Potassium 3.9. Bicarb 22. BUN 28. Creatinine 0.98. proBNP 2760. Legionella screen negative. He is seen today in consultation in the emergency department. He is currently sitting up in a stretcher. Awake and alert. He is requiring 9 L high flow nasal cannula to maintain O2 saturations in the 90s. He is dyspneic with conversation. Dyspneic with exertion. He has normal saline at 80 MLS per hour. He has been initiated on ceftriaxone and azithromycin. The patient is seen today March 10, 2024 in follow-up on the selective care unit. He is currently sitting up in bed. Awake and alert in no acute distress. Breathing quite a bit easier today compared to yesterday. He is maintaining O2 saturations in the 90s on 5 L/min per nasal cannula. He is afebrile. Hemodynamically stable. Chest x-ray reveals interstitial infection and evidence of COPD. Blood cultures reveal no growth thus far. Sputum culture pending. White count 18.1. Hemoglobin 12.3. Platelets 427. Sodium 135. Potassium 4.1. Bicarb 25. BUN 29. Creatinine 0.91. Glucose 113. Procalcitonin 13.1. Echocardiogram revealed preserved left ventricular systolic function. Mild to moderate aortic stenosis. He remains on DuoNeb inhalations, Pulmicort and Perforomist inhalations, Solu-Medrol. NicoDerm patch in place. Antibiotics in the form of ceftriaxone. Lovenox for DVT prophylaxis. Normal saline at 100 MLS per hour. The patient is seen today March 11, 2024 in follow-up on the selective care unit. He is awake and alert in no acute distress. Sitting up in sitting up in bed. Denies any worsening shortness of breath, cough or congestion. He is still on 7 L high flow nasal cannula to maintain O2 saturation in the 90s. He did develop atrial fibrillation last evening. He is on a Cardizem drip at 5 mg/h. Normal saline at KVO. Still somewhat bronchospastic and wheezing. He remains on DuoNeb ventilations, Pulmicort and Perforomist inhalations, Solu-Medrol. NicoDerm patch in place. Lovenox for anticoagulation. Remains on ceftriaxone. White count 15.2. Hemoglobin 12.0. Platelets 469. Sodium 136. Potassium 4.2. Bicarb 24. BUN 30. Creatinine 0.95. Troponin negative. 03/12/2024, the patient is being seen for a follow-up. This is a 53-year-old male patient with known history of COPD, previous history of spontaneous pneumothorax and previous history of smoking along with hypertension and migraines. The patient presented to us with acute chills exacerbation and suspected community-acquired pneumonia. The patient's procalcitonin level was elevated at 13.4. He also has a new onset atrial fibrillation with rapid medical response. The patient on today's evaluation is stable. He remains on bronchodilators. Remains on IV Solu-Medrol. He remains on IV Rocephin and he has completed a course of Zithromax. The patient was also taken off the Cardizem drip and the patient is currently on oral metoprolol 50 mg p.o. twice a day. Amlodipine has been discontinued and the patient is currently on Lovenox 40 mg subcu for DVT prophylaxis and the patient was not subjected to long-term anticoagulation. His blood work from today shows a WBC count of 12.2 with a hemoglobin 11.9 and a platelet count of 42. BUN 31 with a creatinine of 0.8. Sodium levels at 137. The sputum culture was positive for Adwoa albicans. Blood cultures were negative. IV fluids are currently at KVO. Objective - Vital Signs Vital signs: Vital Signs Temp 97.8 F 03/12/24 08:12 Pulse 114 H 03/12/24 11:39 Resp 16 03/12/24 11:39 BP 144/89 03/12/24 11:39 Pulse Ox 91 L 03/12/24 11:46 FiO2 Intake & Output 03/11/24 03/12/24 03/12/24 18:59 06:59 18:59 Intake Total 305.833 118 Balance 305.833 118 Intake: Intake, IV Titration 65.833 Amount Diltiazem 125 mg In 65.833 Sodium Chloride 0.9% 100 ml @ 10 MG/HR 10 mls/hr IV .[id number] [facility] Rx#: [id number] Oral 240 118 Other: Voiding Method Urinal Urinal # Voids 2 - Exam GENERAL EXAM: Alert, 53-year-old male, on 7 L high flow nasal cannula, in no acute distress. HEAD: Normocephalic. EYES: Normal reaction of pupils, equal size. NOSE: Clear with pink turbinates. THROAT: No erythema or exudates. NECK: No masses, no JVD. CHEST: No chest wall deformity. LUNGS: Equal air entry with bilateral scattered rhonchi, wheeze, diminished. CVS: S1 and S2 normal with no audible murmur, irregular rhythm. ABDOMEN: No hepatosplenomegaly, normal bowel sounds, no guarding or rigidity. SPINE: No scoliosis or deformity SKIN: No rashes CENTRAL NERVOUS SYSTEM: No focal deficits, tone is normal in all 4 extremities. EXTREMITIES: There is no peripheral edema. No clubbing, no cyanosis. Peripheral pulses are intact. - Labs CBC & Chem 7: 03/12/24 06:55 03/12/24 06:55 Labs: Abnormal Lab Results - Last 24 Hours (Table) 03/11/24 03/11/24 03/12/24 Range/Units 16:34 20:21 06:14 WBC (3.8-10.6) k/uL RBC (4.30-5.90) m/uL Hgb (13.0-17.5) gm/dL Hct (39.0-53.0) % Plt Count (150-450) k/uL Neutrophils # (1.3-7.7) k/uL Lymphocytes # (1.0-4.8) k/uL Chloride (98-107) mmol/L BUN (9-20) mg/dL Glucose (74-99) mg/dL POC Glucose (mg/dL) 116 H 190 H 115 H (70-110) mg/dL Calcium (8.4-10.2) mg/dL Magnesium (1.6-2.3) mg/dL 03/12/24 03/12/24 03/12/24 Range/Units 06:55 06:55 11:21 WBC 12.2 H (3.8-10.6) k/uL RBC 3.58 L (4.30-5.90) m/uL Hgb 11.5 L (13.0-17.5) gm/dL Hct 34.8 L (39.0-53.0) % Plt Count 482 H (150-450) k/uL Neutrophils # 10.8 H (1.3-7.7) k/uL Lymphocytes # 0.8 L (1.0-4.8) k/uL Chloride 109 H (98-107) mmol/L BUN 31 H (9-20) mg/dL Glucose 113 H (74-99) mg/dL POC Glucose (mg/dL) 156 H (70-110) mg/dL Calcium 8.2 L (8.4-10.2) mg/dL Magnesium 2.4 H (1.6-2.3) mg/dL Microbiology - Last 24 Hours (Table) 03/08/24 18:15 Blood Culture - Preliminary Blood 03/08/24 18:30 Blood Culture - Preliminary Blood 03/09/24 15:10 Gram Stain - Final Sputum Sputum Culture - Final Adwoa albicans Assessment and Plan Plan: Acute hypoxic respiratory failure secondary to an acute exacerbation of suspected severe chronic obstructive pulmonary disease with underlying acute community-acquired pneumonia. Procalcitonin 13.4. Remains on ceftriaxone New onset of atrial fibrillation with rapid ventricular response, currently off Cardizem drip, and the patient is currently on metoprolol tartrate to 50 mg twice a day, Patient with [id number] of 1. Decrease Lovenox to 40 mg subcu daily for DVT prophylaxis. Add aspirin 81mg daily. Patient does not meet indications for long-term anticoagulation. Chronic and ongoing tobacco dependence of greater than 40 years at 2 packs/day Mild to moderate aortic stenosis Hypertension History of migraines Plan: Continue to follow closely maintain saturation above 90% Repeat procalcitonin level in a.m. Continue ceftriaxone Continue bronchodilators and steroids Cardizem drip has been discontinued and the patient has been transitioned to metoprolol 50 mg p.o. twice a day. Remains in atrial fibrillation. Therapeutic Lovenox Titrate the FiO2 as tolerated NicoDerm patch in place Echo shows preserved LV function with mild aortic stenosis We will continue to follow
[2024-03-12 19:45] LABS: Glucose,Whole Blood 181 mg/dL (70-110)
[2024-03-13 06:16] LABS: Glucose,Whole Blood 105 mg/dL (70-110)
[2024-03-13 07:18] LABS: Basophils # (A) 0.1 k/uL (0-0.2); Basophils % (A) 0 %; Eosinophils % (A) 0 %; HCT 40.3 % (39.0-53.0); HGB 13.1 gm/dL (13.0-17.5); Lymphocytes % (A) 7 %; MCH 31.5 pg (25.0-35.0); MCHC 32.5 g/dL (31.0-37.0); Monocytes # (A) 0.5 k/uL (0-1.0); Monocytes % (A) 4 %; Neutrophils # (A) 12.9 k/uL (1.3-7.7); Neutrophils % (A) 88 %; Platelet Count 550 k/uL (150-450); RBC 4.16 m/uL (4.30-5.90); RDW 13.4 % (11.5-15.5); WBC 14.7 k/uL (3.8-10.6)
[2024-03-13 07:49] LABS: African American GFR (CKD) >90 (>60 ml/min/1.73 sqM); Anion Gap 3 mmol/L; Blood Urea Nitrogen 35 mg/dL (9-20); Calcium 8.5 mg/dL (8.4-10.2); Carbon Dioxide 25 mmol/L (22-30); Chloride 109 mmol/L (98-107); Glucose 105 mg/dL (74-99); Non-African American GFR(CKD) >90 (>60 ml/min/1.73 sqM); Potassium 4.5 mmol/L (3.5-5.1); Sodium 137 mmol/L (137-145)
[2024-03-13] MEDS: ENOXAPARIN 40 MG/0.4 ML SYRINGE SQ SCH (08:04)
[2024-03-13] MEDS: METOPROLOL TARTRATE 25 MG TAB PO STA (10:40)
[2024-03-13] MEDS: guaiFENesin 600 MG TABLET.ER PO SCH (11:18)
[2024-03-13] MEDS: ALPRAZolam 0.5 MG TAB PO PRN (11:18)
[2024-03-13 11:33] LABS: Glucose,Whole Blood 136 mg/dL (70-110)
--- NOTE | 2024-03-13 12:40 | P.PN ---
Subjective HISTORY OF PRESENT ILLNESS: This is a 53-year-old gentleman with a past medical history significant for hypertension and smoking and chronic obstructive pulmonary disease who was admitted to the hospital with pneumonia and COPD exacerbation. He presented to the hospital complaining of shortness of breath associated with cough productive of sputum with no fever and no chills no symptoms of chest pain or chest discomfort or dizziness or lightheadedness or any presyncope or syncope. He was found to be hypoxic requiring oxygen and he was admitted and was diagnosed with acute hypoxic respiratory failure secondary to COPD and pneumonia. We consulted to see the patient because of atrial fibrillation which is known. The patient did not have any feeling of heart racing or fluttering. He continues to be in atrial fibrillation. He was started on Cardizem IV. No history of atrial fibrillation before and no history of coronary artery disease or congestive heart failure or any cardiac arrhythmia. The patient never seen by a materials manager before. Currently he is in atrial fibrillation with controlled heart rate on the current dose of Cardizem which is 10 mg IV per hour. The chest x-ray showed finding consistent with a pneumonia. The rest of the blood work overall came in to be unremarkable. He underwent an echo during his hospit al stay and that showed normal biventricular dimension and systolic function with mild to moderate aortic stenosis. The examination is remarkable for irregular rhythm with a systolic murmur at the right and left upper sternal border with diminished breathing sounds bilaterally but no wheezing and no edema was noted in the lower extremities. March 12, 2024 Patient examined this morning at the bedside. Patient currently denies chest pain or pressure. He reports mild shortness of breath. He continues to have a cough at the time of examination. He remains in atrial fibrillation with heart rate around 120. Patient states he was a 2 pack-a-day smoker until he was admitted to the hospital. He also reports marijuana use. March 13, 2024 Patient examined this morning at the bedside. Patient denies chest pain or pressure. He denies shortness of breath. Patient remains in atrial fibrillati on with controlled ventricular rate. Patient is having episodes of RVR with ambulation. PHYSICAL EXAM: VITAL SIGNS: Reviewed. GENERAL: Well-developed in no acute distress. NECK: Supple. No JVD or thyromegaly LUNGS: Respirations even and unlabored. Lungs with rhonchi. Frequent coughing noted. HEART: Tachycardic. Irregular rate and rhythm. S1 and S2 heard. EXTREMITIES: Normal range of motion. No clubbing or cyanosis. Peripheral pulses intact. No lower extremity edema ASSESSMENT: Shortness of breath Pneumonia Acute COPD exacerbation Acute hypoxic respiratory failure New onset atrial fibrillation with RVR Hypertension Valvular heart disease Nicotine dependence with recent cessation, patient smoking 2 packs/day Significant caffeine use on an outpatient basis with coffee and a 2 L of soda daily Marijuana use PLAN: Increase metoprolol to tartrate to 75 mg twice a day Continue telemetry monitoring Patient with [id number] of 1. Continue aspirin 81mg daily. Patient does not meet indications for long-term anticoagulation. Smoking cessation recommended. Patient to be referred to [place] quitline upon discharge. Patient instructed to decrease caffeine use Possible discharge home tomorrow if patient remains stable Further recommendations pending patient course Nurse practitioner note has been reviewed by physician. Signing provider agrees with the documented findings, assessment, and plan of care documented by STRAPPING MACHINE TENDER as a scribe. Objective - Vital Signs Vital signs: Vital Signs Temp 97.6 F 03/12/24 20:30 Pulse 88 03/13/24 12:06 Resp 18 03/13/24 12:06 BP 151/83 03/13/24 11:23 Pulse Ox 93 L 03/13/24 11:58 FiO2 Intake & Output 03/12/24 03/13/24 03/13/24 18:59 06:59 18:59 Intake Total 436 Balance 436 Weight 57.425 kg Intake: Oral 436 Other: Voiding Method Urinal Urinal - Labs CBC & Chem 7: 03/13/24 06:26 03/13/24 06:26 Labs: Abnormal Lab Results - Last 24 Hours (Table) 03/12/24 03/13/24 03/13/24 Range/Units 19:44 06:26 06:26 WBC 14.7 H (3.8-10.6) k/uL RBC 4.16 L (4.30-5.90) m/uL Plt Count 550 H (150-450) k/uL Neutrophils # 12.9 H (1.3-7.7) k/uL Chloride 109 H (98-107) mmol/L BUN 35 H (9-20) mg/dL Glucose 105 H (74-99) mg/dL POC Glucose (mg/dL) 181 H (70-110) mg/dL 03/13/24 Range/Units 11:32 WBC (3.8-10.6) k/uL RBC (4.30-5.90) m/uL Plt Count (150-450) k/uL Neutrophils # (1.3-7.7) k/uL Chloride (98-107) mmol/L BUN (9-20) mg/dL Glucose (74-99) mg/dL POC Glucose (mg/dL) 136 H (70-110) mg/dL
--- NOTE | 2024-03-13 12:41 | P.PN ---
Subjective Progress Note Date: 03/13/24 Hospital Course: 53-year-old male with history of COPD, nicotine dependence, migraine attacks, hypertension presenting with shortness of breath. Chest x-ray in the emergency room revealed findings consistent with COPD along with diffuse airspace opacities concerning for pneumonitis versus pneumonia versus edema. EKG revealed sinus tachycardia at 117 bpm with an incomplete right bundle branch block . Laboratory evaluation was remarkable for leukocytosis of 38.5, hemoglobin 12.9, sodium 134, BUN 38, creatinine 1.25, glucose 124, troponin 0.015, and proBNP 2760. The patient had a Tmax of 100.3 F in the emergency room and was SpO2 92% on nonrebreather mask upon arrival. Started on bronchodilator s, IV steroid, and IV antibiotics. Pulmonology also consulted. Patient also developed atrial fibrillation, cardiology consulted. Was started on Cardizem drip. Now on increased dose of oral metoprolol. Subjective: Patient seen this morning. He states that he is feeling better. Last night pat ient did go into A-fib with RVR. 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 Active: Acute hypoxic respiratory failure Acute COPD exacerbation Sepsis secondary to multifocal bacterial pneumonia Nicotine dependence -Continue IV ceftriaxone 2 g every 24 hours, status post IV azithromycin -Blood cultures negative, sputum cultures positive for Adwoa, likely normal oral earl -Echocardiogram shows normal LV function, mild to moderate aortic stenosis -Continue Solu-Medrol 60 every 6 hours IV, DuoNebs 4 times daily as needed and scheduled, albuterol every 4 hours as needed, budesonide twice daily, formoterol twice daily -Patient started on Mucinex 1200 mg p.o. every 12 hours -Pulmonology following -Counseled regarding smoking cessation, patient on nicotine patch 21 mg daily -Continue to wean oxygen. Patient now on room air New onset atrial fibrillation, now rate controlled -Cardiology increased patient's metoprolol to 75 mg p.o. twice daily -Amlodipine discontinued -Lovenox decreased to 40 subcu daily, patient does not need anticoagulation given low [id number] score Chronic: Hypertension Migraine DVT ppx: Lovenox Code status: Full code Anticipated discharge place: Home Anticipated discharge time: Anticipate patient be ready for discharge the next 24 hours if his heart rate is controlled. Objective - Vital Signs Vital signs: Vital Signs Temp 97.6 F 03/12/24 20:30 Pulse 88 03/13/24 12:06 Resp 18 03/13/24 12:06 BP 151/83 03/13/24 11:23 Pulse Ox 93 L 03/13/24 11:58 FiO2 Intake & Output 03/12/24 03/13/24 03/13/24 18:59 06:59 18:59 Intake Total 436 Balance 436 Weight 57.425 kg Intake: Oral 436 Other: Voiding Method Urinal Urinal - Labs CBC & Chem 7: 03/13/24 06:26 03/13/24 06:26 Labs: Abnormal Lab Results - Last 24 Hours (Table) 03/12/24 03/13/24 03/13/24 Range/Units 19:44 06:26 06:26 WBC 14.7 H (3.8-10.6) k/uL RBC 4.16 L (4.30-5.90) m/uL Plt Count 550 H (150-450) k/uL Neutrophils # 12.9 H (1.3-7.7) k/uL Chloride 109 H (98-107) mmol/L BUN 35 H (9-20) mg/dL Glucose 105 H (74-99) mg/dL POC Glucose (mg/dL) 181 H (70-110) mg/dL 03/13/24 Range/Units 11:32 WBC (3.8-10.6) k/uL RBC (4.30-5.90) m/uL Plt Count (150-450) k/uL Neutrophils # (1.3-7.7) k/uL Chloride (98-107) mmol/L BUN (9-20) mg/dL Glucose (74-99) mg/dL POC Glucose (mg/dL) 136 H (70-110) mg/dL
--- NOTE | 2024-03-13 13:06 | P.PN ---
Subjective Progress Note Date: 03/13/24 This is a pleasant 53-year-old male patient with a known history of chronic and ongoing tobacco dependence for 40 years smoking up to 2 packs/day with previous spontaneous pneumothoraces. He also has a history of hypertension and migraines. He presented here to the emergency room with severe shortness of breath, cough congestion. Chest x-ray shows COPD with superimposed interstitial lung disease and bibasilar airspace disease. White count 37.6. Hemoglobin 13.2. Sodium 134. Potassium 3.9. Bicarb 22. BUN 28. Creatinine 0.98. proBNP 2760. Legionella screen negative. He is seen today in consultation in the emergency department. He is currently sitting up in a stretcher. Awake and alert. He is requiring 9 L high flow nasal cannula to maintain O2 saturations in the 90s. He is dyspneic with conversation. Dyspneic with exertion. He has normal saline at 80 MLS per hour. He has been initiated on ceftriaxone and azithromycin. The patient is seen today March 10, 2024 in follow-up on the selective care unit. He is currently sitting up in bed. Awake and alert in no acute distress. Breathing quite a bit easier today compared to yesterday. He is maintaining O2 saturations in the 90s on 5 L/min per nasal cannula. He is afebrile. Hemodynamically stable. Chest x-ray reveals interstitial infection and evidence of COPD. Blood cultures reveal no growth thus far. Sputum culture pending. White count 18.1. Hemoglobin 12.3. Platelets 427. Sodium 135. Potassium 4.1. Bicarb 25. BUN 29. Creatinine 0.91. Glucose 113. Procalcitonin 13.1. Echocardiogram revealed preserved left ventricular systolic function. Mild to moderate aortic stenosis. He remains on DuoNeb inhalations, Pulmicort and Perforomist inhalations, Solu-Medrol. NicoDerm patch in place. Antibiotics in the form of ceftriaxone. Lovenox for DVT prophylaxis. Normal saline at 100 MLS per hour. The patient is seen today March 11, 2024 in follow-up on the selective care unit. He is awake and alert in no acute distress. Sitting up in sitting up in bed. Denies any worsening shortness of breath, cough or congestion. He is still on 7 L high flow nasal cannula to maintain O2 saturation in the 90s. He did develop atrial fibrillation last evening. He is on a Cardizem drip at 5 mg/h. Normal saline at KVO. Still somewhat bronchospastic and wheezing. He remains on DuoNeb ventilations, Pulmicort and Perforomist inhalations, Solu-Medrol. NicoDerm patch in place. Lovenox for anticoagulation. Remains on ceftriaxone. White count 15.2. Hemoglobin 12.0. Platelets 469. Sodium 136. Potassium 4.2. Bicarb 24. BUN 30. Creatinine 0.95. Troponin negative. 03/12/2024, the patient is being seen for a follow-up. This is a 53-year-old male patient with known history of COPD, previous history of spontaneous pneumothorax and previous history of smoking along with hypertension and migraines. The patient presented to us with acute chills exacerbation and suspected community-acquired pneumonia. The patient's procalcitonin level was elevated at 13.4. He also has a new onset atrial fibrillation with rapid medical response. The patient on today's evaluation is stable. He remains on bronchodilators. Remains on IV Solu-Medrol. He remains on IV Rocephin and he has completed a course of Zithromax. The patient was also taken off the Cardizem drip and the patient is currently on oral metoprolol 50 mg p.o. twice a day. Amlodipine has been discontinued and the patient is currently on Lovenox 40 mg subcu for DVT prophylaxis and the patient was not subjected to long-term anticoagulation. His blood work from today shows a WBC count of 12.2 with a hemoglobin 11.9 and a platelet count of 42. BUN 31 with a creatinine of 0.8. Sodium levels at 137. The sputum culture was positive for Adwoa albicans. Blood cultures were negative. IV fluids are currently at KVO. On today's evaluation on 03/13/2024, the patient is being seen for a follow-up. Note that this patient improved his oxygenation and patient is currently on room air oxygen. Nevertheless, he continues to have some congested cough, unable to bring up much sputum. Shortness of breath is improved yet stable compared to yesterday. Meanwhile, the patient went into atrial fibrillation with rapid ventricular response. Based on that, cardiology consultation has been obtained. The patient is currently in atrial fibrillation. He is currently on metoprolol 75 mg p.o. twice a day. He was not felt to be a candidate for anticoagulation. Blood work from today shows a white cell count of 14.7 with a hemoglobin of 13 a nd a platelet count of 550. BUN 35 with a creatinine of 0.9 and a sodium level is at 137. Echo of the heart was done on 03/09/2024 and showed a preserved LV function with an EF of around 55 to 60%. Mild pulmonary pretension. RV systolic pressure was estimated to be at 36. There was also mild to moderate aortic stenosis with mild aortic regurgitation. Objective - Vital Signs Vital signs: Vital Signs Temp 97.6 F 03/12/24 20:30 Pulse 80 03/13/24 09:03 Resp 16 03/13/24 07:13 BP 164/93 03/13/24 07:13 Pulse Ox 93 L 03/13/24 08:45 FiO2 Intake & Output 03/12/24 03/13/24 03/13/24 18:59 06:59 18:59 Intake Total 436 Balance 436 Weight 57.425 kg Intake: Oral 436 Other: Voiding Method Urinal Urinal - Exam GENERAL EXAM: Alert, 53-year-old male, on 7 L high flow nasal cannula, in no acute distress. HEAD: Normocephalic. EYES: Normal reaction of pupils, equal size. NOSE: Clear with pink turbinates. THROAT: No erythema or exudates. NECK: No masses, no JVD. CHEST: No chest wall deformity. LUNGS: Equal air entry with bilateral scattered rhonchi, wheeze, diminished. CVS: S1 and S2 normal with no audible murmur, irregular rhythm. ABDOMEN: No hepatosplenomegaly, normal bowel sounds, no guarding or rigidity. SPINE: No scoliosis or deformity SKIN: No rashes CENTRAL NERVOUS SYSTEM: No focal deficits, tone is normal in all 4 extremities. EXTREMITIES: There is no peripheral edema. No clubbing, no cyanosis. Peripheral pulses are intact. - Labs CBC & Chem 7: 03/13/24 06:26 03/13/24 06:26 Labs: Abnormal Lab Results - Last 24 Hours (Table) 03/12/24 03/12/24 03/13/24 Range/Units 11:21 19:44 06:26 WBC 14.7 H (3.8-10.6) k/uL RBC 4.16 L (4.30-5.90) m/uL Plt Count 550 H (150-450) k/uL Neutrophils # 12.9 H (1.3-7.7) k/uL Chloride (98-107) mmol/L BUN (9-20) mg/dL Glucose (74-99) mg/dL POC Glucose (mg/dL) 156 H 181 H (70-110) mg/dL 03/13/24 Range/Units 06:26 WBC (3.8-10.6) k/uL RBC (4.30-5.90) m/uL Plt Count (150-450) k/uL Neutrophils # (1.3-7.7) k/uL Chloride 109 H (98-107) mmol/L BUN 35 H (9-20) mg/dL Glucose 105 H (74-99) mg/dL POC Glucose (mg/dL) (70-110) mg/dL Assessment and Plan Plan: Acute hypoxic respiratory failure secondary to an acute exacerbation of suspected severe chronic obstructive pulmonary disease with underlying acute community-acquired pneumonia. Procalcitonin 13.4. The patient completed a course of Rocephin. Currently is on room air oxygen. Repeat chest x-ray to be obtained. Repeat procalcitonin level is pending. New onset of atrial fibrillation with rapid ventricular response, currently off Cardizem drip, and the patient is currently on metoprolol tartrate to 75 mg twice a day, Patient with [id number] of 1. Decrease Lovenox to 40 mg subcu daily for DVT prophylaxis. Add aspirin 81mg daily. Patient does not meet indications for long-term anticoagulation. Chronic and ongoing tobacco dependence of greater than 40 years at 2 packs/day Mild to moderate aortic stenosis Hypertension History of migraines Plan: Continue to follow closely maintain saturation above 90% Repeat procalcitonin level in a.m. results are still pending Repeat chest x-ray Complete the course of Rocephin Continue bronchodilators and steroids Metoprolol 75 mg p.o. twice a day. Remains in atrial fibrillation. No anticoagulants for now Continue Lovenox DVT prophylaxis Titrate the FiO2 as tolerated NicoDerm patch in place Echo shows preserved LV function with mild aortic stenosis We will continue to follow
[2024-03-13 17:02] LABS: Glucose,Whole Blood 112 mg/dL (70-110)
[2024-03-13] MEDS ORDERED: ALPRAZolam 0.25 MG TAB PO PRN (17:27)
[2024-03-13 20:00] LABS: Glucose,Whole Blood 119 mg/dL (70-110)
[2024-03-13] MEDS: METOPROLOL TARTRATE 25 MG TAB PO SCH (20:20)
[2024-03-14 05:20] LABS: Glucose,Whole Blood 115 mg/dL (70-110)
[2024-03-14 07:52] VITALS: RESP 16; TEMP 97.6
[2024-03-14 08:38] LABS: Basophils # (A) 0.1 k/uL (0-0.2); Basophils % (A) 0 %; Eosinophils % (A) 0 %; HCT 45.3 % (39.0-53.0); HGB 14.2 gm/dL (13.0-17.5); Lymphocytes # (A) 1.5 k/uL (1.0-4.8); Lymphocytes % (A) 6 %; MCH 30.3 pg (25.0-35.0); MCHC 31.3 g/dL (31.0-37.0); Mean Platelet Volume 7.8; Monocytes # (A) 0.8 k/uL (0-1.0); Monocytes % (A) 3 %; Neutrophils # (A) 20.9 k/uL (1.3-7.7); Neutrophils % (A) 89 %; Platelet Count 699 k/uL (150-450); RBC 4.67 m/uL (4.30-5.90); RDW 13.6 % (11.5-15.5); WBC 23.5 k/uL (3.8-10.6)
[2024-03-14 09:14] LABS: African American GFR (CKD) >90 (>60 ml/min/1.73 sqM); Anion Gap 4 mmol/L; Blood Urea Nitrogen 37 mg/dL (9-20); Calcium 8.6 mg/dL (8.4-10.2); Carbon Dioxide 25 mmol/L (22-30); Chloride 107 mmol/L (98-107); Glucose 101 mg/dL (74-99); Non-African American GFR(CKD) 84 (>60 ml/min/1.73 sqM); Potassium 5.2 mmol/L (3.5-5.1); Sodium 136 mmol/L (137-145)
[2024-03-14] MEDS: predniSONE 20 MG TAB PO SCH (11:08)
[2024-03-14 11:10] VITALS: BP 133/81
[2024-03-14 11:39] LABS: Glucose,Whole Blood 145 mg/dL (70-110)
[2024-03-14 12:05] VITALS: PULSE 86
--- NOTE | 2024-03-14 13:25 | P.PN ---
Subjective HISTORY OF PRESENT ILLNESS: This is a 53-year-old gentleman with a past medical history significant for hypertension and smoking and chronic obstructive pulmonary disease who was admitted to the hospital with pneumonia and COPD exacerbation. He presented to the hospital complaining of shortness of breath associated with cough productive of sputum with no fever and no chills no symptoms of chest pain or chest discomfort or dizziness or lightheadedness or any presyncope or syncope. He was found to be hypoxic requiring oxygen and he was admitted and was diagnosed with acute hypoxic respiratory failure secondary to COPD and pneumonia. We consulted to see the patient because of atrial fibrillation which is known. The patient did not have any feeling of heart racing or fluttering. He continues to be in atrial fibrillation. He was started on Cardizem IV. No history of atrial fibrillation before and no history of coronary artery disease or congestive heart failure or any cardiac arrhythmia. 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 Currently he is in atrial fibrillation with controlled heart rate on the current dose of Cardizem which is 10 mg IV per hour. The chest x-ray showed finding consistent with a pneumonia. The rest of the blood work overall came in to be unremarkable. He underwent an echo during his hospit al stay and that showed normal biventricular dimension and systolic function with mild to moderate aortic stenosis. The examination is remarkable for irregular rhythm with a systolic murmur at the right and left upper sternal border with diminished breathing sounds bilaterally but no wheezing and no edema was noted in the lower extremities. March 12, 2024 Patient examined this morning at the bedside. Patient currently denies chest pain or pressure. He reports mild shortness of breath. He continues to have a cough at the time of examination. He remains in atrial fibrillation with heart rate around 120. Patient states he was a 2 pack-a-day smoker until he was admitted to the hospital. He also reports marijuana use. March 13, 2024 Patient examined this morning at the bedside. Patient denies chest pain or pressure. He denies shortness of breath. Patient remains in atrial fibrillati on with controlled ventricular rate. Patient is having episodes of RVR with ambulation. March 14, 2024 Patient examined this morning at the bedside. Patient states he is feeling a lot better today. He denies any chest pain or pressure. He denies any shortness of breath. Telemetry reveals atrial fibrillation with controlled ventricular rate. Patient is hoping to be discharged home today. PHYSICAL EXAM: VITAL SIGNS: Reviewed. GENERAL: Well-developed in no acute distress. NECK: Supple. No JVD or thyromegaly LUNGS: Respirations even and unlabored. Lungs with rhonchi. Frequent coughing noted. HEART: Tachycardic. Irregular rate and rhythm. S1 and S2 heard. EXTREMITIES: Normal range of motion. No clubbing or cyanosis. Peripheral pulses intact. No lower extremity edema ASSESSMENT: Shortness of breath Pneumonia Acute COPD exacerbation Acute hypoxic respiratory failure New onset atrial fibrillation with RVR Hypertension Valvular heart disease Nicotine dependence with recent cessation, patient smoking 2 packs/day Significant caffeine use on an outpatient basis with coffee and a 2 L of soda daily Marijuana use PLAN: Continue current cardiac medications Patient with [id number] of 1. Continue aspirin 81mg daily. Patient does not meet indications for long-term anticoagulation. Smoking cessation recommended. Patient to be referred to [place] quitline upon discharge. Patient instructed to decrease caffeine use Patient is stable for discharge home today from a cardiac standpoint Patient to follow-up postdischarge in the office with Dr. Miguel Nurse practitioner note has been reviewed by physician. Signing provider agrees with the documented findings, assessment, and plan of care documented by MANAGER WOMEN as a scribe. Objective - Vital Signs Vital signs: Vital Signs Temp 97.6 F 03/14/24 07:45 Pulse 86 03/14/24 12:04 Resp 16 03/14/24 11:06 BP 133/81 03/14/24 11:06 Pulse Ox 95 03/14/24 11:06 FiO2 Intake & Output 03/13/24 03/14/24 03/14/24 18:59 06:59 18:59 Intake Total 0 118 Balance 0 118 Intake: Oral 0 118 Other: Voiding Method Urinal Urinal # Voids 0 # Bowel Movements 0 - Labs CBC & Chem 7: 03/14/24 07:49 03/14/24 07:49 Labs: Abnormal Lab Results - Last 24 Hours (Table) 03/13/24 03/13/24 03/13/24 Range/Units 06:25 17:01 19:59 WBC (3.8-10.6) k/uL Plt Count (150-450) k/uL Neutrophils # (1.3-7.7) k/uL Sodium (137-145) mmol/L Potassium (3.5-5.1) mmol/L BUN (9-20) mg/dL Glucose (74-99) mg/dL POC Glucose (mg/dL) 112 H 119 H (70-110) mg/dL Procalcitonin 1.07 H (0.02-0.09) ng/mL 03/14/24 03/14/24 03/14/24 Range/Units 05:18 07:49 07:49 WBC 23.5 H (3.8-10.6) k/uL Plt Count 699 H (150-450) k/uL Neutrophils # 20.9 H (1.3-7.7) k/uL Sodium 136 L (137-145) mmol/L Potassium 5.2 H (3.5-5.1) mmol/L BUN 37 H (9-20) mg/dL Glucose 101 H (74-99) mg/dL POC Glucose (mg/dL) 115 H (70-110) mg/dL Procalcitonin (0.02-0.09) ng/mL 03/14/24 Range/Units 11:38 WBC (3.8-10.6) k/uL Plt Count (150-450) k/uL Neutrophils # (1.3-7.7) k/uL Sodium (137-145) mmol/L Potassium (3.5-5.1) mmol/L BUN (9-20) mg/dL Glucose (74-99) mg/dL POC Glucose (mg/dL) 145 H (70-110) mg/dL Procalcitonin (0.02-0.09) ng/mL Microbiology - Last 24 Hours (Table) 03/08/24 18:15 Blood Culture - Final Blood 03/08/24 18:30 Blood Culture - Final Blood
--- NOTE | 2024-03-14 13:36 | P.DS ---
Providers Date of admission: 03/08/24 19:18 Attending physician: Oanh Clark MD Consults: 03/08/24 19:18 Consult Physician Routine Consulting Provider: Jaquan Rolon Consult Reason/Comments: hypoxiay Do you want consulting provider notified?: Yes 03/10/24 17:02 Consult Physician Routine Consulting Provider: Estiven Miguel Consult Reason/Comments: new onset afib rvr Do you want consulting provider notified?: Yes Primary care physician: Simon [facility]erged with [facility] Course: Discharge diagnosis Acute hypoxic respiratory failure Acute COPD exacerbation Sepsis secondary to multifocal pneumonia New onset atrial fibrillation Nicotine dependence Hypertension Migraine Hospital course 53-year-old male with history of COPD, nicotine dependence, migraine attacks, hypertension presenting with shortness of breath. Chest x-ray in the emergency room revealed findings consistent with COPD along with diffuse airspace opacities concerning for pneumonitis versus pneumonia versus edema. EKG revealed sinus tachycardia at 117 bpm with an incomplete right bundle branch block . Laboratory evaluation was remarkable for leukocytosis of 38.5, hemoglobin 12.9, sodium 134, BUN 38, creatinine 1.25, glucose 124, troponin 0.015, and proBNP 2760. The patient had a Tmax of 100.3 F in the emergency room and was SpO2 92% on nonrebreather mask upon arrival. Started on bronchodilators, IV steroid, and IV antibiotics. Pulmonology also consulted. Patient was treated with IV Rocephin and azithromycin. Patient at the time of discharge was weaned down to room air. Chest x-ray prior to discharge showed improvement in the consolidation as per my interpretation. Patient's procalcitonin was 13.40 and trended down to 1.07. Patient's WBC initially trended down but then trended back up likely due to steroids. At the time of discharge patient was seen walking around in the hallways without any dyspnea. Patient will be discharged on Ceftin for 5 more days. Patient will need a prolonged hospital course due to severe COPD and also infiltrative lung disease. Patient's blood culture was negative. Sputum culture grew Adwoa which is likely contamination. Patient had a complicated hospital course with A-fib with RVR. Patient was started on beta-nathaniel by cardiology. His beta-nathaniel had to be uptitrated. At the time of discharge he will be discharged on metoprolol 75 mg p.o. twice daily. Per cardiology patient does not need anticoagulation due to low [id number] VASc score. Patient will be discharged home. He is looking forward to going home. 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 Patient Condition at Discharge: Fair Plan - Discharge Summary Discharge Rx Participant: Yes New Discharge Prescriptions: New Metoprolol Tartrate [Lopressor] 75 mg PO BID 30 Days #180 tab guaiFENesin [Mucinex] 1,200 mg PO Q12HR 14 Days #56 tab Aspirin 81 mg PO DAILY 30 Days #30 tab predniSONE [Deltasone] 40 mg PO DAILY 4 Days #8 tab cefUROXime axetiL [Ceftin] 500 mg PO BID 5 Days #10 tab Continue HYDROcodone/APAP 10-325MG [Galliano 10-325] 1 tab PO TID Fluticasone/Umeclidin/Vilanter [Trelegy Ellipta 100-62.5-25] 1 puff I NHALATION RT-DAILY Topiramate [Topamax] 100 mg PO DAILY Budesonide/Formoterol Fumarate [Symbicort 160-4.5 Mcg Inhaler] 2 puff INHALATION RT-BID PRN PRN Reason: Shortness Of Breath Discontinued amLODIPine [Norvasc] 5 mg PO DAILY Discharge Medication List HYDROcodone/APAP 10-325MG [Galliano 10-325] 1 tab PO TID 12/03/14 [History] Budesonide/Formoterol Fumarate [Symbicort 160-4.5 Mcg Inhaler] 2 puff INHALATION RT-BID PRN 03/08/24 [History] Fluticasone/Umeclidin/Vilanter [Trelegy Ellipta 100-62.5-25] 1 puff INHALATION RT-DAILY 03/08/24 [History] Topiramate [Topamax] 100 mg PO DAILY 03/08/24 [History] Aspirin 81 mg PO DAILY 30 Days #30 tab 03/14/24 [Rx] Metoprolol Tartrate [Lopressor] 75 mg PO BID 30 Days #180 tab 03/14/24 [Rx] cefUROXime axetiL [Ceftin] 500 mg PO BID 5 Days #10 tab 03/14/24 [Rx] guaiFENesin [Mucinex] 1,200 mg PO Q12HR 14 Days #56 tab 03/14/24 [Rx] predniSONE [Deltasone] 40 mg PO DAILY 4 Days #8 tab 03/14/24 [Rx] Follow up Appointment(s)/Referral(s): Estiven Miguel MD [STAFF PHYSICIAN] - 1 Week None,Stated [REFERRING] - 1-2 days Neptali Harrison MD [STAFF PHYSICIAN] - 1 Week Discharge Disposition: HOME SELF-CARE
--- NOTE | 2024-03-14 14:48 | P.PN ---
Subjective Progress Note Date: 03/14/24 This is a pleasant 53-year-old male patient with a known history of chronic and ongoing tobacco dependence for 40 years smoking up to 2 packs/day with previous spontaneous pneumothoraces. He also has a history of hypertension and migraines. He presented here to the emergency room with severe shortness of breath, cough congestion. Chest x-ray shows COPD with superimposed interstitial lung disease and bibasilar airspace disease. White count 37.6. Hemoglobin 13.2. Sodium 134. Potassium 3.9. Bicarb 22. BUN 28. Creatinine 0.98. proBNP 2760. Legionella screen negative. He is seen today in consultation in the emergency department. He is currently sitting up in a stretcher. Awake and alert. He is requiring 9 L high flow nasal cannula to maintain O2 saturations in the 90s. He is dyspneic with conversation. Dyspneic with exertion. He has normal saline at 80 MLS per hour. He has been initiated on ceftriaxone and azithromycin. The patient is seen today March 10, 2024 in follow-up on the selective care unit. He is currently sitting up in bed. Awake and alert in no acute distress. Breathing quite a bit easier today compared to yesterday. He is maintaining O2 saturations in the 90s on 5 L/min per nasal cannula. He is afebrile. Hemodynamically stable. Chest x-ray reveals interstitial infection and evidence of COPD. Blood cultures reveal no growth thus far. Sputum culture pending. White count 18.1. Hemoglobin 12.3. Platelets 427. Sodium 135. Potassium 4.1. Bicarb 25. BUN 29. Creatinine 0.91. Glucose 113. Procalcitonin 13.1. Echocardiogram revealed preserved left ventricular systolic function. Mild to moderate aortic stenosis. He remains on DuoNeb inhalations, Pulmicort and Perforomist inhalations, Solu-Medrol. NicoDerm patch in place. Antibiotics in the form of ceftriaxone. Lovenox for DVT prophylaxis. Normal saline at 100 MLS per hour. The patient is seen today March 11, 2024 in follow-up on the selective care unit. He is awake and alert in no acute distress. Sitting up in sitting up in bed. Denies any worsening shortness of breath, cough or congestion. He is still on 7 L high flow nasal cannula to maintain O2 saturation in the 90s. He did develop atrial fibrillation last evening. He is on a Cardizem drip at 5 mg/h. Normal saline at KVO. Still somewhat bronchospastic and wheezing. He remains on DuoNeb ventilations, Pulmicort and Perforomist inhalations, Solu-Medrol. NicoDerm patch in place. Lovenox for anticoagulation. Remains on ceftriaxone. White count 15.2. Hemoglobin 12.0. Platelets 469. Sodium 136. Potassium 4.2. Bicarb 24. BUN 30. Creatinine 0.95. Troponin negative. 03/12/2024, the patient is being seen for a follow-up. This is a 53-year-old male patient with known history of COPD, previous history of spontaneous pneumothorax and previous history of smoking along with hypertension and migraines. The patient presented to us with acute chills exacerbation and suspected community-acquired pneumonia. The patient's procalcitonin level was elevated at 13.4. He also has a new onset atrial fibrillation with rapid medical response. The patient on today's evaluation is stable. He remains on bronchodilators. Remains on IV Solu-Medrol. He remains on IV Rocephin and he has completed a course of Zithromax. The patient was also taken off the Cardizem drip and the patient is currently on oral metoprolol 50 mg p.o. twice a day. Amlodipine has been discontinued and the patient is currently on Lovenox 40 mg subcu for DVT prophylaxis and the patient was not subjected to long-term anticoagulation. His blood work from today shows a WBC count of 12.2 with a hemoglobin 11.9 and a platelet count of 42. BUN 31 with a creatinine of 0.8. Sodium levels at 137. The sputum culture was positive for Adwoa albicans. Blood cultures were negative. IV fluids are currently at KVO. On today's evaluation on 03/13/2024, the patient is being seen for a follow-up. Note that this patient improved his oxygenation and patient is currently on room air oxygen. Nevertheless, he continues to have some congested cough, unable to bring up much sputum. Shortness of breath is improved yet stable compared to yesterday. Meanwhile, the patient went into atrial fibrillation with rapid ventricular response. Based on that, cardiology consultation has been obtained. The patient is currently in atrial fibrillation. He is currently on metoprolol 75 mg p.o. twice a day. He was not felt to be a candidate for anticoagulation. Blood work from today shows a white cell count of 14.7 with a hemoglobin of 13 a nd a platelet count of 550. BUN 35 with a creatinine of 0.9 and a sodium level is at 137. Echo of the heart was done on 03/09/2024 and showed a preserved LV function with an EF of around 55 to 60%. Mild pulmonary pretension. RV systolic pressure was estimated to be at 36. There was also mild to moderate aortic stenosis with mild aortic regurgitation. On today's evaluation of 03/14/2024, the patient is doing well. No specific complaints. Repeat chest x-ray was done yesterday that showed some clearing of the lower lobe pulmonary filtrates. The patient remains on room air oxygen. His cardiac rhythm remains atrial fibrillation yet the rate is controlled for now. Labs from today shows a white cell count of 23 with a hemoglobin 14 point benefit of count of 6.9 and the BUN is at 37 with a creatinine of 1.01 and a sodium level is 136. The patient will likely get discharged home on Trelegy Ellipta, prednisone burst taper and DuoNeb updrafts [id number] to be followed up on outpatient basis. No anticoagulants per cardiology. Metoprolol for rate control dose of 75 mg p.o. twice a day. Objective - Vital Signs Vital signs: Vital Signs Temp 97.6 F 03/14/24 07:45 Pulse 86 03/14/24 09:18 Resp 16 03/14/24 07:45 BP 126/98 03/14/24 07:45 Pulse Ox 95 03/14/24 08:58 FiO2 Intake & Output 03/13/24 03/14/24 03/14/24 18:59 06:59 18:59 Intake Total 0 Balance 0 Intake: Oral 0 Other: Voiding Method Urinal Urinal # Voids 0 # Bowel Movements 0 - Exam GENERAL EXAM: Alert, 53-year-old male, on 7 L high flow nasal cannula, in no acute distress. HEAD: Normocephalic. EYES: Normal reaction of pupils, equal size. NOSE: Clear with pink turbinates. THROAT: No erythema or exudates. NECK: No masses, no JVD. CHEST: No chest wall deformity. LUNGS: Equal air entry with bilateral scattered rhonchi, wheeze, diminished. CVS: S1 and S2 normal with no audible murmur, irregular rhythm. ABDOMEN: No hepatosplenomegaly, normal bowel sounds, no guarding or rigidity. SPINE: No scoliosis or deformity SKIN: No rashes CENTRAL NERVOUS SYSTEM: No focal deficits, tone is normal in all 4 extremities. EXTREMITIES: There is no peripheral edema. No clubbing, no cyanosis. Peripheral pulses are intact. - Labs CBC & Chem 7: 03/14/24 07:49 03/14/24 07:49 Labs: Abnormal Lab Results - Last 24 Hours (Table) 03/13/24 03/13/24 03/13/24 Range/Units 06:25 11:32 17:01 WBC (3.8-10.6) k/uL Plt Count (150-450) k/uL Neutrophils # (1.3-7.7) k/uL Sodium (137-145) mmol/L Potassium (3.5-5.1) mmol/L BUN (9-20) mg/dL Glucose (74-99) mg/dL POC Glucose (mg/dL) 136 H 112 H (70-110) mg/dL Procalcitonin 1.07 H (0.02-0.09) ng/mL 03/13/24 03/14/24 03/14/24 Range/Units 19:59 05:18 07:49 WBC 23.5 H (3.8-10.6) k/uL Plt Count 699 H (150-450) k/uL Neutrophils # 20.9 H (1.3-7.7) k/uL Sodium (137-145) mmol/L Potassium (3.5-5.1) mmol/L BUN (9-20) mg/dL Glucose (74-99) mg/dL POC Glucose (mg/dL) 119 H 115 H (70-110) mg/dL Procalcitonin (0.02-0.09) ng/mL 03/14/24 Range/Units 07:49 WBC (3.8-10.6) k/uL Plt Count (150-450) k/uL Neutrophils # (1.3-7.7) k/uL Sodium 136 L (137-145) mmol/L Potassium 5.2 H (3.5-5.1) mmol/L BUN 37 H (9-20) mg/dL Glucose 101 H (74-99) mg/dL POC Glucose (mg/dL) (70-110) mg/dL Procalcitonin (0.02-0.09) ng/mL Microbiology - Last 24 Hours (Table) 03/08/24 18:15 Blood Culture - Final Blood 03/08/24 18:30 Blood Culture - Final Blood Assessment and Plan Plan: Acute hypoxic respiratory failure secondary to an acute exacerbation of suspected severe chronic obstructive pulmonary disease with underlying acute community-acquired pneumonia. Procalcitonin 13.4. The patient completed a course of Rocephin. Currently is on room air oxygen. Repeat chest x-ray to be obtained. The findings showed improvement in the lower lobe pulmonary filtrates. The repeat procalcitonin level is down to 1.07. Clinically much improved. The patient is currently on room air oxygen. New onset of atrial fibrillation with rapid ventricular response, currently off Cardizem drip, and the patient is currently on metoprolol tartrate to 75 mg twice a day, Patient with [id number] of 1. Decrease Lovenox to 40 mg subcu daily for DVT prophylaxis. Add aspirin 81mg daily. Patient does not meet indications for long-term anticoagulation. Chronic and ongoing tobacco dependence of greater than 40 years at 2 packs/day Mild to moderate aortic stenosis Hypertension History of migraines Plan: Clinically improved Oxygenation improved Procalcitonin improved Repeat chest x-ray shows improvement in the lower lobe pulmonary filtrates Completed the course of Rocephin Continue bronchodilators and steroids Metoprolol 75 mg p.o. twice a day. Remains in atrial fibrillation. No antico agulants for now Continue Lovenox DVT prophylaxis Titrate the FiO2 as tolerated NicoDerm patch in place Will discharge home on Trelegy Ellipta 1 puff a day, prednisone burst taper and DuoNeb nebulized treatments to be followed up on outpatient basis.
--- NOTE | 2024-03-15 14:22 | XR ---
EXAMINATION TYPE: XR chest 1V DATE OF EXAM: 03/13/2024 3:47 PM CLINICAL INDICATION:Male, 53 years old with history of Follow-up pneumonia; [facility] COMPARISON: 03/10/2024 TECHNIQUE: XR chest 1V Portable AP radiograph of the chest.. FINDINGS: Lungs/Pleura: Hyperinflated lungs with diffuse increased interstitial markings, greatest at the bases , similar to before. Some superimposed patchy airspace disease, especially in the lung bases, cannot be excluded. There is evidence of small pleural effusions, especially on the left. No apical pneumoth orax is seen. Pulmonary vascularity: Unremarkable. Heart/mediastinum: Cardiomediastinal silhouette is unremarkable. Musculoskeletal: No acute osseous pathology. Mild diffuse degenerative changes. IMPRESSION: 1. Similar lung findings, likely chronic changes with mildly increased edema and atelectasis. Correl ate for superimposed infection. 2. Consider CT chest for further characterization when appropriate.
== END 2024-03-14 14:15 | disposition home or self-care (01) | DRG 871 ==
LOC: EC 15:58 → 3SCARD 19:18
PROVIDERS: ADMIT Internal Medicine; ATTEND Internal Medicine
DX: A41.9 Sepsis, unspecified organism (principal); J15.9 Unspecified bacterial pneumonia; J96.01 Acute respiratory failure with hypoxia; J44.1 Chronic obstructive pulmonary disease with (acute) exacerbation; J44.0 Chronic obstructive pulmonary disease with (acute) lower respiratory infection; J84.9 Interstitial pulmonary disease, unspecified; I48.91 Unspecified atrial fibrillation; F17.210 Nicotine dependence, cigarettes, uncomplicated; D75.838 Other thrombocytosis; G43.809 Other migraine, not intractable, without status migrainosus; R79.89 Other specified abnormal findings of blood chemistry; B37.9 Candidiasis, unspecified; T38.0X5A Adverse effect of glucocorticoids and synthetic analogues, initial encounter; D72.829 Elevated white blood cell count, unspecified; F41.0 Panic disorder [episodic paroxysmal anxiety]; I10 Essential (primary) hypertension; I35.0 Nonrheumatic aortic (valve) stenosis; I45.10 Unspecified right bundle-branch block; Z79.899 Other long term (current) drug therapy; Z79.51 Long term (current) use of inhaled steroids; Z88.0 Allergy status to penicillin; Z71.6 Tobacco abuse counseling
CPT/HCPCS: 36415; 71045; 80048; 80053; 83735; 83880; 84145; 84484; 85025; 85027; 85610; 85730; 87040; 87070; 87205; 87449; 93005; 93306; 94640; 94760; 96361; 96365; 96366; 96367; 96372; 96375; 96376; 99291